=== PATIENT | female | born 1990 | race Caucasian/White ===

== ENCOUNTER 2016-12-19 10:10 | Inpatient (IN) | payer OTHER ==
[~2016-12-19] VITALS: Ht 175.3 cm; Wt 64.2 kg
[2016-12-19] MEDS ORDERED: FLEET ENEMA PR PRN (11:45)
[2016-12-19] MEDS ORDERED: MOM 30ML SUSPENSION UDC PO PRN (11:45)
[2016-12-19] MEDS ORDERED: ACETAMINOPHEN TAB 650MG DOSE (2X325MG) PO PRN (11:45)
[2016-12-19] MEDS ORDERED: BISACODYL 5 MG TAB PO PRN (11:45)
[2016-12-19] MEDS ORDERED: IBUPROFEN 400 MG TAB PO PRN (11:45)
[2016-12-19] MEDS ORDERED: traMADol 50 MG TAB PO PRN (12:15)
[2016-12-19 14:15] VITALS: BP 143/83
[2016-12-19] MEDS ORDERED: IBUP40TA PO (14:54)
[2016-12-19] MEDS ORDERED: COLA100C3 PO (14:54)
[2016-12-19] MEDS ORDERED: MIRA33504 PO (14:54)
[2016-12-19] MEDS ORDERED: LOVE1INJ SC (14:54)
[2016-12-19] MEDS ORDERED: ACET500T37 PO (14:54)
[2016-12-19] MEDS ORDERED: HYDR2TAB2 PO (14:54)
[2016-12-19] MEDS ORDERED: DIAZ5TAB PO (14:54)
[2016-12-19] MEDS ORDERED: SENN8.6T10 PO (14:54)
[2016-12-19] MEDS ORDERED: PATIENT COMMENT (14:55)
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
[2016-12-19] MEDS: HYDROmorphone 2 MG TAB PO PRN ×2 (15:23→20:21)
[2016-12-19] MEDS: diazePAM 5 MG TAB PO SCH ×2 (15:23→20:16)
[2016-12-19] MEDS: traMADol 50 MG TAB PO SCH ×2 (17:23→20:18)
[2016-12-19] MEDS: OYSTER SHELL CALCIUM 500 MG TAB PO SCH (20:17)
[2016-12-19] MEDS: SENNA 8.6 MG TAB (SENOKOT) PO SCH (20:19)
[2016-12-19] MEDS: ENOXAPARIN 40 MG/0.4 ML SYRINGE (J1650) SC SCH (20:19)
[2016-12-19] MEDS: DOCUSATE SODIUM 100 MG CAP PO SCH (20:19)
[2016-12-19 20:30] VITALS: BP 119/65
[2016-12-20] MEDS: diazePAM 5 MG TAB PO SCH ×4 (01:53→20:16)
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
[2016-12-20 06:07] VITALS: BP 121/67
[2016-12-20 07:16] LABS: BASO % 0.4 % (0.0-1.0); EOS # 0.2 K/mm3 (0.0-0.50); EOS % 3.1 % (0.0-3.0); LARGE UNSTAINED CELL # 0.1 K/mm3 (0.0-0.4); LYMPH # 1.7 K/mm3 (1.5-6.5); LYMPH % 26.2 % (24.0-44.0); MEAN CORPUSCULAR HEMOGLOBIN 30.2 pg (27.0-33.0); MEAN CORPUSCULAR HGB CONC 33.2 g/dl (32.0-36.5); MEAN CORPUSCULAR VOLUME 90.8 fl (80.0-96.0); MONO # 0.3 K/mm3 (0.0-0.8); MONO % 5.4 % (0.0-5.0); NEUTROPHILS # 3.8 K/mm3 (1.8-7.7); NEUTROPHILS % 62.9 % (36.0-66.0); PLATELET COUNT, AUTOMATED 171 k/mm3 (150-450); RED CELL DISTRIBUTION WIDTH 13.2 % (11.5-14.5)
[2016-12-20 07:19] LABS: CALCIUM OXALATE CRYSTALS SMALL
[2016-12-20] MEDS: HYDROmorphone 2 MG TAB PO SCH ×2 (07:39→12:31)
[2016-12-20 07:46] LABS: ALBUMIN 3.4 GM/DL (3.2-5.2); ALBUMIN/GLOBULIN RATIO 0.92 (1.00-1.93); ALKALINE PHOSPHATASE 42 U/L (45-117); ALT/SGPT 32 U/L (12-78); ANION GAP 7 MEQ/L (8-16); AST/SGOT 9 U/L (15-37); BILIRUBIN,TOTAL 0.4 MG/DL (0.2-1.0); BLOOD UREA NITROGEN 20 MG/DL (7-18); CALCIUM LEVEL 8.5 MG/DL (8.5-10.1); CARBON DIOXIDE LEVEL 26 MEQ/L (21-32); CHLORIDE LEVEL 106 MEQ/L (98-107); CREATININE FOR GFR 0.57 MG/DL (0.55-1.02); GLOMERULAR FILTRATION RATE > 60.0 (>60); GLUCOSE, FASTING 86 MG/DL (70-105); SODIUM LEVEL 139 MEQ/L (136-145); TOTAL PROTEIN 7.1 GM/DL (6.4-8.2)
[2016-12-20] MEDS: MULTIVITAMINS/MINERALS THERAP 1 TAB PO SCH (08:30)
[2016-12-20] MEDS: OYSTER SHELL CALCIUM 500 MG TAB PO SCH ×2 (08:30→20:15)
[2016-12-20] MEDS: SENNA 8.6 MG TAB (SENOKOT) PO SCH ×2 (08:30→20:17)
[2016-12-20] MEDS: traMADol 50 MG TAB PO SCH ×4 (08:30→20:17)
[2016-12-20] MEDS: DOCUSATE SODIUM 100 MG CAP PO SCH ×2 (08:31→20:18)
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
[2016-12-20 14:00] VITALS: BP 123/64
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
[2016-12-20 20:00] VITALS: BP 117/66
[2016-12-20] MEDS: ENOXAPARIN 40 MG/0.4 ML SYRINGE (J1650) SC SCH (20:15)
[2016-12-20] MEDS: HYDROmorphone 2 MG TAB PO PRN (20:16)
[2016-12-20] MEDS ORDERED: NICOTINE 14 MG/24 HR TRANSDERMAL TD ONE (20:45)
[2016-12-21] MEDS: diazePAM 5 MG TAB PO SCH ×4 (02:03→20:32)
[2016-12-21] MEDS: HYDROmorphone 2 MG TAB PO PRN ×2 (02:04→20:34)
[2016-12-21 06:00] VITALS: BP 100/50
[2016-12-21 06:33] LABS: MEAN CORPUSCULAR HEMOGLOBIN 31.1 pg (27.0-33.0); MEAN CORPUSCULAR HGB CONC 34.6 g/dl (32.0-36.5); RED CELL DISTRIBUTION WIDTH 13.2 % (11.5-14.5)
[2016-12-21] MEDS: HYDROmorphone 2 MG TAB PO SCH ×2 (06:40→12:01)
[2016-12-21] MEDS: MULTIVITAMINS/MINERALS THERAP 1 TAB PO SCH (08:21)
[2016-12-21] MEDS: OYSTER SHELL CALCIUM 500 MG TAB PO SCH ×2 (08:21→20:32)
[2016-12-21] MEDS: NICOTINE 14 MG/24 HR TRANSDERMAL TD SCH (08:22)
[2016-12-21] MEDS: traMADol 50 MG TAB PO SCH ×4 (08:23→20:34)
[2016-12-21] MEDS: SENNA 8.6 MG TAB (SENOKOT) PO SCH ×2 (08:23→21:00)
[2016-12-21] MEDS: DOCUSATE SODIUM 100 MG CAP PO SCH ×2 (08:23→21:00)
[2016-12-21 14:00] VITALS: BP 123/68
[2016-12-21 20:00] VITALS: BP 113/55
[2016-12-21] MEDS: ENOXAPARIN 40 MG/0.4 ML SYRINGE (J1650) SC SCH (20:35)
[2016-12-22] MEDS: diazePAM 5 MG TAB PO SCH ×4 (02:02→20:52)
[2016-12-22 06:00] VITALS: BP 103/57
[2016-12-22 06:28] LABS: MEAN CORPUSCULAR HEMOGLOBIN 30.8 pg (27.0-33.0); MEAN CORPUSCULAR HGB CONC 34.3 g/dl (32.0-36.5); MEAN CORPUSCULAR VOLUME 89.9 fl (80.0-96.0); RED CELL DISTRIBUTION WIDTH 13.3 % (11.5-14.5); WHITE BLOOD COUNT 4.5 K/mm3 (4.0-10.0)
[2016-12-22] MEDS: HYDROmorphone 2 MG TAB PO SCH ×2 (06:36→12:53)
[2016-12-22] MEDS: DOCUSATE SODIUM 100 MG CAP PO SCH ×2 (09:00→20:43)
[2016-12-22] MEDS: SENNA 8.6 MG TAB (SENOKOT) PO SCH ×3 (09:00→20:44)
[2016-12-22] MEDS: NICOTINE 14 MG/24 HR TRANSDERMAL TD SCH (09:04)
[2016-12-22] MEDS: MULTIVITAMINS/MINERALS THERAP 1 TAB PO SCH (09:04)
[2016-12-22] MEDS: traMADol 50 MG TAB PO SCH ×4 (09:05→20:54)
[2016-12-22] MEDS: OYSTER SHELL CALCIUM 500 MG TAB PO SCH ×2 (09:06→20:53)
[2016-12-22 14:00] VITALS: BP 123/66
[2016-12-22 20:00] VITALS: BP 121/56
[2016-12-22] MEDS: ENOXAPARIN 40 MG/0.4 ML SYRINGE (J1650) SC SCH (20:52)
[2016-12-22] MEDS: HYDROmorphone 2 MG TAB PO PRN (20:55)
[2016-12-23 06:17] VITALS: BP 104/59
[2016-12-23 06:57] LABS: MEAN CORPUSCULAR HEMOGLOBIN 31.2 pg (27.0-33.0); MEAN CORPUSCULAR HGB CONC 34.5 g/dl (32.0-36.5); MEAN CORPUSCULAR VOLUME 90.4 fl (80.0-96.0); RED CELL DISTRIBUTION WIDTH 13.2 % (11.5-14.5); WHITE BLOOD COUNT 4.2 K/mm3 (4.0-10.0)
[2016-12-23] MEDS: HYDROmorphone 2 MG TAB PO SCH ×2 (07:54→12:31)
[2016-12-23] MEDS ORDERED: diazePAM 5 MG TAB PO SCH (08:00)
[2016-12-23] MEDS: MULTIVITAMINS/MINERALS THERAP 1 TAB PO SCH (09:19)
[2016-12-23] MEDS: traMADol 50 MG TAB PO SCH ×2 (09:20→13:55)
[2016-12-23] MEDS: NICOTINE 14 MG/24 HR TRANSDERMAL TD SCH (09:21)
[2016-12-23] MEDS: OYSTER SHELL CALCIUM 500 MG TAB PO SCH (09:22)
[2016-12-23] MEDS ORDERED: NICO7PA TD (09:31)
[2016-12-23] MEDS ORDERED: CALCI50TA PO (09:31)
[2016-12-23] MEDS ORDERED: NICO14PA TD (09:31)
[2016-12-23] MEDS ORDERED: DILA2TAB2 PO (09:31)
[2016-12-23] MEDS ORDERED: TRAM50TA2 PO (09:31)
[2016-12-23] MEDS ORDERED: DIAZ5TAB PO (09:47)
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
[2016-12-25] MEDS ORDERED: NICOTINE 7 MG/24 HR TRANSDERMAL TD SCH (09:00)
[2016-12-27] MEDS ORDERED: diazePAM 5 MG TAB PO SCH (02:00)
== END 2016-12-23 14:48 | disposition home or self-care (01) | DRG 862 ==
LOC: M PM&R 14:15
PROVIDERS: ADMIT Physical Medicine & Rehabilitation; ATTEND Physical Medicine & Rehabilitation
DX: S32.402D Unspecified fracture of left acetabulum, subsequent encounter for fracture with routine healing (principal); F41.9 Anxiety disorder, unspecified; S22.32XD Fracture of one rib, left side, subsequent encounter for fracture with routine healing; S36.11 Injury of liver; S36.030D Superficial (capsular) laceration of spleen, subsequent encounter; F17.200 Nicotine dependence, unspecified, uncomplicated; R79.89 Other specified abnormal findings of blood chemistry; V49.40XD Driver injured in collision with unspecified motor vehicles in traffic accident, subsequent encounter; Y92.410 Unspecified street and highway as the place of occurrence of the external cause; Y93.89 Activity, other specified; Y99.9 Unspecified external cause status; Z80.41 Family history of malignant neoplasm of ovary; Z81.8 Family history of other mental and behavioral disorders; Z79.899 Other long term (current) drug therapy; Z33.1 Pregnant state, incidental; S32.512D Fracture of superior rim of left pubis, subsequent encounter for fracture with routine healing; S32.602D Unspecified fracture of left ischium, subsequent encounter for fracture with routine healing; S32.302D Unspecified fracture of left ilium, subsequent encounter for fracture with routine healing

== ENCOUNTER → 2016-12-26 | Outpatient (CLI) | payer OTHER ==
[~2016-12-26] MED LIST: ACET500T37 PO; CALCI50TA PO; COLA100C3 PO; DIAZ5TAB PO; DILA2TAB2 PO; HYDR2TAB2 PO; IBUP40TA PO; LOVE1INJ SC; MIRA33504 PO; NICO14PA TD; NICO7PA TD; PATIENT COMMENT; SENN8.6T10 PO; TRAM50TA2 PO
== END ==
LOC: M RAD 13:38
PROVIDERS: ATTEND Obstetrics & Gynecology
DX: O20.0 Threatened abortion (principal); Z3A.00 Weeks of gestation of pregnancy not specified

== ENCOUNTER → 2017-01-16 | Outpatient (CLI) | payer OTHER ==
--- NOTE | 2017-01-16 13:52 | REP ---
MRI LUMBAR SPINE WITHOUT CONTRAST: HISTORY: Disc degeneration. Slight decreased signal intensity on T2-weighted images is present in the L1-2 intervertebral disc . This represents disc degeneration. There is no disc bulge or herniation at the L1-2 through L3-4 and L5-S1 levels. The nerves exit the neural foramina without compression. A diffuse disc bulge is present at the L4-5 level. There is minimal compression of the thecal sac. The L4 nerves exit the neural foramina without compression. The conus medullaris is normal in appearance terminating at the level of the T12-L1 intervertebral disc. Normal signal intensity is present in the lumbar vertebral bodies. IMPRESSION: Diffuse disc bulge at the L4-5 level with minimal thecal sac compression. Signed by Colton Jefferson MD 01/16/2017 02:17 P
== END ==
LOC: M RAD 12:55
PROVIDERS: ATTEND Physician Assistant
DX: M51.26 Other intervertebral disc displacement, lumbar region (principal)

== ENCOUNTER → 2017-10-15 | Outpatient (REF) | payer OTHER | LOC: M LAB REF 11:24 | DX: F11.21 Opioid dependence, in remission (principal) ==

== ENCOUNTER → 2017-10-28 | Outpatient (REF) | payer OTHER, MEDICAID | LOC: M LAB REF 16:35 | DX: F11.21 Opioid dependence, in remission (principal) ==

== ENCOUNTER → 2017-11-05 | Outpatient (REF) | payer OTHER, MEDICAID ==
[2017-11-11 14:18] LABS: AMPHETAMINE SCREEN, URINE Negative ng/mL (Cutoff=1000); BARBITURATES SCREEN, URINE Negative ng/mL (Cutoff=200); BENZODIAZEPINES, URINE SCREEN Negative ng/mL (Cutoff=200); CANNABINOID SCREEN, URINE Negative ng/mL (Cutoff=20); COCAINE SCREEN, URINE Negative ng/mL (Cutoff=300); CREATININE, URINE 218.8 mg/dL (20.0-300.0); FENTANYL URINE SCREEN Negative pg/mL (Cutoff=2000); METHADONE, URINE SCREEN Negative ng/mL (Cutoff=300); NALOXONE RESULT Positive (.); OPIATE SCREEN, URINE Negative ng/mL (Cutoff=300); OXYCODONE, SCREEN, URINE Negative ng/mL (Cutoff=100); PCP SCREEN, URINE Negative ng/mL (Cutoff=25); URINE BUPRENORPHINE Positive (.); URINE BUPRENORPHINE Positive (Cutoff=10); URINE BUPRENORPHINE See Final Results ng/mL (Cutoff=10); URINE BUPRENORPHINE CONFIRM 668 ng/mL (Cutoff=10); URINE NORBUPRENORPHINE Positive (.); URINE NORBUPRENORPHINE CONFIRM 1044 ng/mL (Cutoff=10); pH, URINE 6.4 (4.5-8.9)
== END ==
LOC: M LAB REF 16:53
DX: F11.21 Opioid dependence, in remission (principal)
CPT/HCPCS: 80362

== ENCOUNTER → 2017-11-25 | Outpatient (REF) | payer OTHER, MEDICAID | LOC: M LAB REF 16:31 | DX: F11.21 Opioid dependence, in remission (principal) ==

== ENCOUNTER → 2017-12-10 | Outpatient (REF) | payer OTHER, MEDICAID | LOC: M LAB REF 12:15 | DX: F11.21 Opioid dependence, in remission (principal) ==

== ENCOUNTER 2018-10-22 18:54 | Inpatient (IN) | payer OTHER, MEDICAID ==
[2018-10-22] VITALS (20 sets, daily range): BP systolic 116–140; BP diastolic 57–95
[~2018-10-22 18:54] MED LIST changes: +ACET-683 PO; -ACET500T37 PO; -COLA100C3 PO; +COLA100C5 PO; -DILA2TAB2 PO; +DILA2TAB6 PO; +SENN1TAB10 PO; -SENN8.6T10 PO
[2018-10-22] MEDS ORDERED: PENICILLIN G POTASSIUM IV 5 MU in D5W MINI-BAG PLUS 100 ML IV STA (19:27)
[2018-10-22] MEDS ORDERED: LACTATED RINGER'S 1000 ML IV STA (19:27)
[2018-10-22] MEDS ORDERED: MAG Sulf (L&D) 4 GM/100 ML 4 GM in APPROPRIATE DILUENT 1 EA IV ONE (19:45)
[2018-10-22] MEDS ORDERED: LR 1,000 ML IV SCH (19:45)
[2018-10-22] MEDS ORDERED: MAG Sulf (OBGYN) 20GM/500ML 20,000 MG in APPROPRIATE DILUENT 1 EA IV SCH (20:15)
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
[2018-10-22] MEDS ORDERED: BETAMETHASONE SOLUSPAN 6MG/ML INJ 5ML (J0702) IM ONE (21:30)
[2018-10-22 21:49] LABS: BARBITURATES URINE REFLEX NEGATIVE (NEGATIVE); BENZODIAZEPINES URINE REFLEX NEGATIVE (NEGATIVE); CANNABINOIDS URINE REFLEX NEGATIVE (NEGATIVE); COCAINE METABOLITE URINE REFLE NEGATIVE (NEGATIVE); METHADONE URINE REFLEX NEGATIVE (NEGATIVE); OPIATES URINE REFLEX NEGATIVE (NEGATIVE); PHENCYCLIDINE URINE REFLEX NEGATIVE (NEGATIVE)
[2018-10-22 21:50] LABS: HEMATOCRIT 32.3 % (36.0-47.0); HEMOGLOBIN 10.2 g/dl (12.0-15.5); MEAN CORPUSCULAR HGB CONC 31.6 g/dl (32.0-36.5); MEAN CORPUSCULAR VOLUME 79.2 fl (80.0-96.0); PLATELET COUNT, AUTOMATED 154 10^3/uL (150-450); RED BLOOD COUNT 4.08 10^6/uL (4.00-5.40); WHITE BLOOD COUNT 14.7 10^3/uL (4.0-10.0)
[2018-10-22] MEDS ORDERED: FENTANYL 2MCG/ML ROPIVACAINE 0.2% IN 0.9% NACL 100ML IVBAG As Ordered ONE (22:03)
[2018-10-22 22:20] LABS: AMPHETAMINES URINE REFLEX PENDING CONFIRMATION (NEGATIVE)
[2018-10-22] MEDS ORDERED: LACTATED RINGER'S 1000 ML IV PRN (23:00)
[2018-10-22] MEDS ORDERED: EPIDURAL COMMENT XX SCH (23:00)
[2018-10-22] MEDS ORDERED: REFRIGERATOR IV KEYS XX PRN (23:00)
[2018-10-22] MEDS ORDERED: EPIDURAL/PCA KEYS XX PRN (23:00)
[2018-10-22] MEDS ORDERED: FENTANYL/ROPIVACAINE/NACL BAG 100 ML EPIDURAL SCH (23:00)
[2018-10-22] MEDS ORDERED: ONDANSETRON 4MG/2ML VIAL (J2405) IV PRN (23:00)
[2018-10-22] MEDS ORDERED: ePHEDrine SULFATE 25 MG/5 ML(5MG/ML) SYRINGE IV PRN (23:00)
[2018-10-22] MEDS ORDERED: diphenhydrAMINE INJ 50MG/ML VIAL (J1200) IV PRN (23:00)
[2018-10-22] MEDS ORDERED: NALOXONE INJ 0.4 MG/1 ML VIAL (J2310) IV PRN (23:00)
[2018-10-23] VITALS (22 sets, daily range): BP systolic 102–141; BP diastolic 55–86
[2018-10-23] MEDS ORDERED: PENICILLIN G POTASSIUM IV 2.5 MU in APPROPRIATE DILUENT 1 EA IV SCH (00:15)
[2018-10-23] MEDS ORDERED: OXYTOCIN 30 UNITS IN 0.9% NaCl 500ML IV BAG (J2590) As Ordered ONE (03:08)
[2018-10-23 06:42] LABS: CORD GAS HCO3 V 22.2 MEQ/L; CORD GAS O2 SAT V 59.8 %; CORD GAS PCO2 V 40.5 mmHg; CORD GAS PH V 7.357 UNITS; CORD GAS PO2 V 24.7 mmHg; CORD GAS SBC V 21.1 MEQ/L; CORD GAS TCO2 V 23.5 MEQ/L
[2018-10-23] MEDS ORDERED: METHYLERGONOVINE MALEATE 0.2 MG TAB PO PRN (06:45)
[2018-10-23] MEDS ORDERED: RHOGAM 300 MCG (1500 IU) INJ (J2790) IM SCH (06:45)
[2018-10-23] MEDS ORDERED: OXYTOCIN DRIP 30 UNITS in APPROPRIATE DILUENT 1 EA IV ONE (06:45)
[2018-10-23] MEDS ORDERED: DIBUCAINE 1% OINTMENT 30GM TOP PRN (06:45)
[2018-10-23] MEDS ORDERED: MEASLES,MUMPS,RUBELLA VACCINE INJ (MMR-II) (90707) SC SCH (06:45)
[2018-10-23] MEDS ORDERED: ONDANSETRON 4MG/2ML VIAL (J2405) IV PRN (06:45)
[2018-10-23] MEDS ORDERED: DOCUSATE SODIUM 100 MG CAP PO PRN (06:45)
[2018-10-23] MEDS: IBUPROFEN 800 MG TAB PO PRN ×2 (08:33→17:38)
[2018-10-23] MEDS: PRENATAL VITAMINS CHEWABLE TABLET PO SCH (08:34)
[2018-10-23] MEDS: ACETAMINOPHEN 500 MG TAB PO PRN ×2 (10:20→22:43)
[2018-10-23 10:48] LABS: RUBELLA IgG QUALITATIVE IMMUNE (IMMUNE)
--- NOTE | 2018-10-23 15:43 | DN ---
DATE: 10/23/2018 PREDELIVERY DIAGNOSIS: 30 weeks gestation, labor. POSTDELIVERY DIAGNOSIS: Probable 34-35 weeks gestation, chorioamnionitis, vaginal delivery. DRYING EQUIPMENT OPERATOR: Dr. Colton Neil ANESTHESIA: Epidural. ESTIMATED BLOOD LOSS: 300 mL. FINDINGS: A 6-pound, 2-ounce male , scores 8 and 9, meconium stained fluid which appeared to be infected. DELIVERY SUMMARY: After a two and a half hour second stage, the patient had spontaneous delivery of a 6-pound, 2-ounce male , scores 8 and 9, under epidural anesthesia. The patient did not receive care during the so the exact gestational age was unknown. There was no nuchal cord. The shoulders delivered with ease. The was handed to the mother and cried immediately. The chord was doubly clamped and cut. Placenta delivered spontaneously and appeared to be intact. The patient received IV pitocin immediately after delivery of the placenta. There were no vaginal lacerations present. Sponge counts were correct.
--- NOTE | 2018-10-23 17:08 | IPNPDOC ---
Text Note Date of Service The patient was seen on 10/23/18. NOTE Pt reports severe headache, photophobia, hot/cold flashes and increased anxiety Normotensive Pt reports last use of Teetee 10/22/18 around 1500. Pt has expressed desire to CPS and nursing staff of wish to detox. Consulted Dr Parks. Medical consult to Dr Bermeo for management of withdrawal symptoms. VS,Fishbone, I+O VS, Fishbone, I+O Laboratory Tests 10/22/18 21:37 Red Blood Count 4.08, Mean Corpuscular Volume 79.2 L, Mean Corpuscular Hemoglobin 25.0 L, Mean Corpuscular Hemoglobin Concent 31.6 L, Red Cell Distribution Width 15.6 H Vital Signs Date Time Temp Pulse Resp B/P (MAP) Pulse Ox O2 Delivery O2 Flow Rate FiO2 10/23/18 14:00 98.2 78 18 120/76 (91) I&O- Last 24 Hours up to 6 AM 10/23/18 06:00 Output Total 575 ml Balance -575 ml Deysi Barreto CNM Oct 23, 2018 17:08
[2018-10-23] MEDS: CALCIUM CARBONATE 500 MG CHEW U/D PO SCH ×2 (18:23→20:46)
[2018-10-23] MEDS ORDERED: cloNIDine HCL 0.2 MG/24 HR PATCH TOP SCH (21:00)
--- NOTE | 2018-10-23 21:01 | CR ---
DATE OF CONSULTATION: 10/23/2018 This is a 28-year-old female with past medical history of post-traumatic stress disorder, anxiety disorder, depression, who presented yesterday to the emergency room (ER) with abdominal pain. She went into labor and successfully delivered a healthy child. REASON FOR MEDICAL CONSULTATION: Narcotic withdrawal; apparently the patient abuses argelia, as well as methamphetamine and heroin. Her last dose of argelia was yesterday around 3:00 p.m. and her last dose of heroin is unknown. However, she is presenting with the classic withdrawal symptoms of narcotic abuse; hence why we were called. PAST MEDICAL HISTORY: Depression. Anxiety. Post-traumatic stress disorder. History of dilatation and curettage (D and C) five times for termination, miscarriage. ALLERGIES: She has no known drug allergies. FAMILY HISTORY: Noncontributory. SOCIAL HISTORY: The patient does smoke chronically and heavily. She also abuses heroin, argelia, and methamphetamine. No alcohol use. MEDICATIONS: She takes at home are as follows: - Tylenol as needed - diazepam 5 mg orally every 8 hours - hydromorphone 2 mg orally every 6 hours as needed - ibuprofen 400 mg orally four times a day - nicotine patch transdermal 7 mg daily - oyster shell calcium 500 mg twice daily - tramadol 50 mg orally every 4 hours as needed REVIEW OF SYSTEMS: Negative all ten major systems except what is mentioned in the history of the present illness. Vital Signs: Blood pressure is 137/80, heart rate is 82, regular, respiratory rate 18, temperature is 97.6. Head is atraumatic, normocephalic. Neck supple. No jugular venous distention (JVD). Lungs are clear to auscultation. S1, S2 audible. No murmurs appreciated. Abdomen: Soft, positive bowel sounds. No pedal edema. Skin: Intact. Neurologic Examination: Patient awake, alert, oriented times three. LABORATORY: WBC is 14.7, hemoglobin is 10.2, hematocrit 32.3, platelets 154,000. IMPRESSION: 1. Narcotic withdrawal. PLAN: At this time, recommendations are to add clonidine .2 mg transdermal weekly. We can always increase it to .3 if necessary. Keep the lights dim for now due to her photophobia and may have to give Imodium for potential diarrhea that may occur as well, but at this time, it is not necessary. Will work alongside the obstetrical service for this particular problem in the course of the next few days. JULIA
[2018-10-24] MEDS: IBUPROFEN 800 MG TAB PO PRN ×3 (01:41→16:26)
[2018-10-24 02:08] VITALS: BP 126/74
[2018-10-24] MEDS ORDERED: LORazepam 1 MG TAB PO PRN (03:45)
[2018-10-24] MEDS: ACETAMINOPHEN 500 MG TAB PO PRN ×2 (04:49→09:05)
[2018-10-24] MEDS: PRENATAL VITAMINS CHEWABLE TABLET PO SCH (09:04)
[2018-10-24] MEDS: CALCIUM CARBONATE 500 MG CHEW U/D PO SCH ×2 (09:04→15:29)
[2018-10-24 10:00] VITALS: BP 118/68
[2018-10-24] MEDS: FIORICET TAB PO PRN ×2 (11:33→15:29)
--- NOTE | 2018-10-24 12:37 | NUR ---
Day 1 Status post , uncomplicated Of note, patient has signed for her baby to be placed under Foster care Has a scheduled visit by immigration case worker on Friday10/26/18. Pt is currently declining drug rehab treatment Subjective C/o chronic AMIN all day and yesterday. Increased appetite. Lochia decreasing and minimal. Voiding spontaneously. Tolerating a regular diet. Ambulating without any assistance. Denies any subjective fever/chills/nausea/vomiting/visual changes/shortness of breath/chest pain. Objective Vitals: Normotensive, normal heart rate, afebrile, adequate urine output. Heart: regular, rate, and rhythm. no murmurs/gallops/rubs Lungs: clear to auscultation bilaterally, no wheezes/crackles/rales/ronchi Abd: soft, nontender, nondistended, uterine fundus is 2cm below umbilicus and firm Ext: no significant edema, nontender, negative Chanel's bilaterally. Assessment/Plan: day 1. Hemodynamically stable, afebrile. Mild to moderate withdrawal symptoms since being hospitalized. Pt accustomed to frequent heroin, [place], and methamphetamine drug abuse. She's not willing to initiate drug rehab treatment. 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 Baby currently in NICU. -Routine care -Discharge today. - BCM plan: DMPA. First dose ordered for today. -Routine infectious, fever, pain, and bleeding precautions reviewed Dr. Domingo Parks, Jyotsna.Kayden., F.A.C.O.G.
[2018-10-24] MEDS ORDERED: medroxyPROGESTERone ACET IM SUSP 150 MG/ML VIAL (J1050) IM ONE (14:30)
[2018-10-24 16:18] VITALS: BP 135/76
[2018-10-24] MEDS ORDERED: FIOR1CAP PO (17:58)
[2018-10-27 08:06] LABS: Amphetamine Positive (.); Amphetamines Positive (.); GC Amphetamine 2336 ng/mL (Cutoff=500); GC Methamphetam >4000 ng/mL (Cutoff=500); Methamphetamine Positive (.)
== END 2018-10-24 18:15 | disposition home or self-care (01) | DRG 560 ==
LOC: M LDO 18:54 → M LDI 19:22 → M OBS 10-23 13:46
PROVIDERS: ADMIT Specialist; ATTEND Specialist
PROC: 10E0XZZ Delivery of Products of Conception, External Approach (ICD-10-PCS; principal; 2018-10-23)
DX: O41.1230 Chorioamnionitis, third trimester, not applicable or unspecified (principal); Z37.0 Single live birth; F11.10 Opioid abuse, uncomplicated; F15.90 Other stimulant use, unspecified, uncomplicated; O99.324 Drug use complicating childbirth; F17.200 Nicotine dependence, unspecified, uncomplicated; O99.334 Smoking (tobacco) complicating childbirth; O09.31 Supervision of pregnancy with insufficient antenatal care, first trimester; O09.32 Supervision of pregnancy with insufficient antenatal care, second trimester; O09.33 Supervision of pregnancy with insufficient antenatal care, third trimester; Z3A.35 35 weeks gestation of pregnancy

== ENCOUNTER 2019-02-02 11:15 | Inpatient (IN) | payer MEDICAID, OTHER ==
[~2019-02-02] VITALS: Ht 175.3 cm; Wt 68.2 kg
[~2019-02-02 11:15] MED LIST changes: +FIOR1CAP PO
[2019-02-02 12:46] LABS: HEMATOCRIT 28.6 % (36.0-47.0); HEMOGLOBIN 8.5 g/dl (12.0-15.5); MEAN CORPUSCULAR HGB CONC 29.7 g/dl (32.0-36.5); MEAN CORPUSCULAR VOLUME 60.6 fl (80.0-96.0); PLATELET COUNT, AUTOMATED 197 10^3/uL (150-450); RED BLOOD COUNT 4.72 10^6/uL (4.00-5.40)
[2019-02-02 13:37] LABS: ALBUMIN 3.3 GM/DL (3.2-5.2); ALT/SGPT 1816 U/L (12-78); BILIRUBIN,DIRECT 3.4 MG/DL (0.0-0.2); BLOOD UREA NITROGEN 10 MG/DL (7-18); CALCIUM LEVEL 8.4 MG/DL (8.5-10.1); CARBON DIOXIDE LEVEL 26 MEQ/L (21-32); CHLORIDE LEVEL 107 MEQ/L (98-107); CREATININE FOR GFR 0.77 MG/DL (0.55-1.30); GLOMERULAR FILTRATION RATE > 60.0 (>60); GLUCOSE, FASTING 86 MG/DL (70-100); LIPASE 184 U/L (73-393); POTASSIUM SERUM 4.2 MEQ/L (3.5-5.1); SODIUM LEVEL 139 MEQ/L (136-145); TOTAL PROTEIN 7.7 GM/DL (6.4-8.2)
[2019-02-02 13:39] LABS: ANISOCYTOSIS 1+; ATYPICAL LYMPH 4 % (0-5); EOSINOPHILS 1 % (0-5); HYPOCHROMASIA 1+; LYMPHOCYTES 61 % (16-52); MONOCYTES 6 % (0-8); NEUTROPHILS 28 % (35-75); PLATELET ESTIMATE NORMAL (NORMAL)
[2019-02-02 14:28] LABS: CHLAMYDIA DNA AMPLIFICATION NEGATIVE (NEGATIVE); GC DNA AMPLIFICATION NEGATIVE (NEGATIVE)
--- NOTE | 2019-02-02 16:04 | REP ---
Clinical: Elevated liver function tests. Technique: Lopez scale ultrasound examination using curved array transducer. Findings: Liver and visualized pancreas are normal in contour, size, echogenicity without focal hepatic or pancreatic lesions identified. The gallbladder is contracted, but without obvious gallstones or wall thickening. No biliary ductal dilatation is appreciated and the common bile duct measures 2.1 mm diameter. The right kidney is normal in reniform shape without hydronephrosis and measures 12.2 x 4.5 x 3.9 cm. No ascites. Impression: Essentially normal right upper quadrant ultrasound. Electronically Signed by Leon Holman MD 02/02/2019 03:56 P
[2019-02-02 17:18] LABS: INR 1.12; PROTHROMBIN TIME 14.1 SECONDS (11.8-14.0)
[2019-02-02] MEDS ORDERED: ISOVUE-370 76% 100ML VIAL (Q9967) As Ordered ONE (18:10)
[2019-02-02 18:25] LABS: MONO REFLEX EBV COMP POSITIVE (NEGATIVE)
[2019-02-02 19:58] LABS: ACETAMINOPHEN LEVEL < 2.0 UG/ML (10.0-30.0)
--- NOTE | 2019-02-02 22:49 | REPVR ---
EXAM: CT Abdomen and Pelvis Without and With Contrast EXAM DATE/TIME: 02/02/2019 9:59 PM CLINICAL HISTORY: 28 years old, female; Abdominal pain; Generalized; Additional info: Triple phse for liver TECHNIQUE: Imaging protocol: Axial computed tomography images of the abdomen and pelvis without and with intravenous contrast. Coronal and sagittal reformatted images were created and reviewed. Radiation optimization: All CT scans at this facility use at least one of these dose optimization techniques: automated exposure control; mA and/or kV adjustment per patient size (includes targeted exams where dose is matched to clinical indication); or iterative reconstruction. Contrast material: ISOVUE 370; Contrast volume: 100 ml; Contrast route: IV; COMPARISON: Abdomen, limited US 02/02/2019 3:31 PM FINDINGS: Liver: There is a diffuse decrease in hepatic parenchymal density, consistent with fatty infiltration. Gallbladder and bile ducts: Cholelithiasis. No CT evidence of cholecystitis. Pancreas: Normal. No ductal dilation. Spleen: There is moderate splenomegaly with a maximum span of 17.5 centimeters. No focal abnormalities demonstrated. Adrenals: Normal. No mass. Kidneys and ureters: Normal. No hydronephrosis. Stomach and bowel: There is increased feces throughout the colon consistent with constipation. There is gastric distention with retained secretions. Clinical correlation to exclude gastroparesis or gastric outlet obstruction suggested. Appendix: No evidence of appendicitis. Intraperitoneal space: Normal. No free air. No significant fluid collection. Vasculature: Normal. No abdominal aortic aneurysm. Lymph nodes: Normal. No enlarged lymph nodes. Bladder: Unremarkable as visualized. Reproductive: Unremarkable as visualized. Bones/joints: No acute fracture. No dislocation. Soft tissues: Small umbilical hernia. Otherwise unremarkable. IMPRESSION: 1. There is moderate splenomegaly with a maximum span of 17.5 centimeters. No focal abnormalities demonstrated. 2. There is a diffuse decrease in hepatic parenchymal density, consistent with fatty infiltration. 3. There is increased feces throughout the colon consistent with constipation. 4. There is gastric distention with retained secretions. Clinical correlation to exclude gastroparesis or gastric outlet obstruction suggested. Electronically signed by: Jesus Loza On 02/02/2019 22:48:46 PM
[2019-02-03] MEDS ORDERED: ONDANSETRON 4MG/2ML VIAL (J2405) IV PRN (00:45)
--- NOTE | 2019-02-03 01:09 | HPEPDOC ---
General Date of Admission 02/03/19 Date of Service: Feb 03, 2019 Chief Complaint The patient is a 28-year-old female admitted with a reason for visit of Urinary Problem. Source: Patient, RN/MD, Old records Exam Limitations: No limitations Severity: Moderate History of Present Illness 28 year old female with h/o poly substance abuse, migraine, from detention came to the ED for yellowish discoloration of her eyes and skin and white colored stools. Pateint has been in the detention for 2 weeks. About a week ago she was having low back pain dull aching in nature radiating to the front of the abdomen into the suprapubic area could not quantify the pain. It was associated with dysuria. She was seen by the detention doctor and was given an antibiotics for urinary tract infection. She felt a little better but today she noticed yellowish color of her skin and eyes. She has also noted whitish soft stools for the past 4 days. In the ED she was found to have very abnormal LFTs with AST/ALT of 1274/1816, bili of 4.0, direct 3.4. She also had a dirty UA. She had a Ct abdomen done which showed . There is moderate splenomegaly with a maximum span of 17.5 centimeters. No focal abnormalities demonstrated. 2. There is a diffuse decrease in hepatic parenchymal density, consistent with fatty infiltration. 3. There is increased feces throughout the colon consistent with constipation. 4. There is gastric distention with retained secretions. Clinical correlation to exclude gastroparesis or gastric outlet obstruction suggested. She was admitted for Acute hepatitis. Home Medications No Active Prescriptions or Reported Meds Allergies Coded Allergies: codeine (Verified Allergy, Severe, almost dies, 02/02/19) acetaminophen (Verified Allergy, Intermediate, rash, 02/02/19) hydrocodone (Verified Allergy, Intermediate, rash, 02/02/19) morphine (Verified Allergy, Intermediate, unknown, 02/02/19) trazodone (Verified Allergy, Intermediate, rash, 02/02/19) Past Medical History Medical History Polysubstance abuse Surgical History appendectomy, D and Cs Social History * Smoker: current smoker Alcohol: Denies Drugs: heroin, IV drug use, other (methaphetamine) A-FIB/CHADSVASC A-FIB History Current/History of A-Fib/PAF?: No Review of Systems Constitutional: Denies: Chills, Fever, Night Sweats Eyes: Denies: Pain, Vision change ENT: Denies: Head Aches, Ear Pain, Dysphagia Skin: Reports: Jaundice Pulmonary: Denies: Dyspnea, Cough Cardiovascular: Denies: Chest Pain, Palpitations, Orthopnea, Paroxysmal Noc. Dyspnea, Lt Headedness Gastrointestinal: Reports: Abdominal Pain, Other Symptoms (change in stool color and consistency); Denies: Nausea, Vomiting, Constipation, Melena Genitourinary: Reports: Dysuria, Frequency Hematologic: Denies: Bruising, Bleeding Excessively Musculoskeletal: Denies: Neck Pain, Back Pain, Joint Pain, Muscle Pain, Spasms Neurological: Denies: Weakness, Numbness, Change in speech, Confusion Physical Examination General Exam: Positive: Alert, Cooperative, No Acute Distress Eye Exam: Positive: PERRLA, Conjunctiva & lids normal, EOMI, Sclera icteric ENT Exam: Positive: Atraumatic, Mucous membr. moist/pink, Pharynx Normal Neck Exam: Positive: Supple; Negative: JVD, thyromegaly Chest Exam: Positive: Clear to auscultation, Normal air movement Heart Exam: Positive: Rate Normal, Regular Rhythm, Normal S1, Normal S2; Negative: Murmurs, Rubs Abdomen Exam: Positive: Normal bowel sounds, Soft, Tenderness (right upper quadrant), Other (no guarding or rigidity) Extremity Exam: Positive: Normal pulses; Negative: Clubbing, Cyanosis, Edema Skin Exam: Positive: Nl turgor and temperature, Other skin issue (jaundice); Negative: Breakdown, Lesion Neuro Exam: Positive: Normal Gait, Normal Speech, Cranial Nerves 3-12 NL, Reflexes 2+ Vital Signs Vital Signs Date Time Temp Pulse Resp B/P (MAP) Pulse Ox O2 Delivery O2 Flow Rate FiO2 02/02/19 22:51 107/76 (86) 02/02/19 21:11 97.8 67 18 96 Room Air Laboratory Data Labs 24H Laboratory Tests 2 02/02/19 12:34: Nucleated Red Blood Cells % (auto) 0.0, Neutrophils 28L, Lymphocytes (Manual) 61H, Monocytes (Manual) 6, Eosinophils (Manual) 1, Atypical Lymphocytes 4, Platelet Estimate NORMAL, Hypochromasia 1+, Anisocytosis 1+, Urine Color DK YELLOW, Urine Appearance HAZY, Urine pH 6.0, Urine Specific [place] 1.011, Urine Protein NEGATIVE, Urine Glucose (UA) NEGATIVE, Urine Ketones NEGATIVE, Urine Blo od NEGATIVE, Urine Nitrite POSITIVEH, Urine Bilirubin 2+H, Urine Urobilinogen 2.0H, Urine Leukocyte Esterase 1+H, Urine WBC (Auto) 16H, Urine RBC (Auto) 5H, Urine Hyaline Casts (Auto) 0, Urine Bacteria (Auto) 2+H, Urine Squamous Epithelial Cells 3, Urine Mucus (Auto) LARGE, Urine Sperm (Auto) , Anion Gap 6L, Glomerular Filtration Rate > 60.0, Calcium Level 8.4L, Aspartate Amino Transf (AST/SGOT) 1274H, Alanine Aminotransferase (ALT/SGPT) 1816H, Alkaline Phosphatase 383H, Total Bilirubin 4.0H, Direct Bilirubin 3.4H, Total Protein 7.7, Albumin 3.3, Albumin/Globulin Ratio 0.75L, Lipase 184, Acetaminophen Level < 2.0L, Chlamydia trachomatis DNA (RONDA) NEGATIVE, Monoscreen POSITIVEA, Neisseria gonorrhoeae DNA (RONDA) NEGATIVE, Trichomonas vaginalis (PCR) NOT DETECTED 02/02/19 16:18: Prothrombin Time 14.1H, Prothromb Time International Ratio 1.12, Lactic Acid Level 1.0, Ammonia < 10 02/02/19 17:43: 02/02/19 21:04: Acetaminophen Level < 2.0L CBC/BMP Laboratory Tests 02/02/19 12:34 Red Blood Count 4.72, Mean Corpuscular Volume 60.6 L, Mean Corpuscular Hemoglobin 18.0 L, Mean Corpuscular Hemoglobin Concent 29.7 L, Red Cell Distribu tion Width 21.2 H Microbiology Microbiology 02/02/19 Wet Prep - Final, Complete 02/02/19 Urine Culture, Received Pending Assessment/Plan 28 year old female with h/o poly substance abuse, migraine, from detention came to the ED for yellowish discoloration of her eyes and skin and white colored stools. Pateint has been in the detention for 2 weeks. About a week ago she was having low back pain dull aching in nature radiating to the front of the abdomen into the suprapubic area could not quantify the pain. It was associated with dysuria. She was seen by the detention doctor and was given an antibiotics for urinary tract infection. She felt a little better but today she noticed yellowish color of her skin and eyes. She has also noted whitish soft stools for the past 4 days. In the ED she was found to have very abnormal LFTs with AST/ALT of 1274/1816, bili of 4.0, direct 3.4. She also had a dirty UA. She had a Ct abdomen done which showed . There is moderate splenomegaly with a maximum span of 17.5 centimeters. No focal abnormalities demonstrated. 2. There is a diffuse decrease in hepatic parenchymal density, consistent with fatty infiltration. 3. There is increased feces throughout the colon consistent with constipation. 4. There is gastric distention with retained secretions. Clinical correlation to exclude gastroparesis or gastric outlet obstruction suggested. She was admitted for Acute hepatitis. Acute Hepatitis most probably viral hepatitis, no hypotension, So no shock liver Drug related hepatotoxicity is also a possibility, recent use f antibiotics , also uses multiple street drugs. ibuprofen prn for pain zofran and PPI [place] screen positive. follow up definitive test for any acute infection which could cause acute hepatitis Follow Hep B, Hep C, Hep A, HIV, CMV results. Consider consulting GI. Possible UTI was getting antibiotics in the detention so culture may be negative. now so symptoms so will not give any antibiotics. Microcytic Anemia new will check iron studies. Does have h/o GIB. Lymphocytosis CBC differential shows lymphocytosis will need to be followed up. CT abdomen suggestive of gastroparesis or gastric outlet obstruction Patient says she had an EGD and Colonoscopy recently at [facility] [place] was not told of any abnormality in [facility] Endoscopy. Di have some abnormality in colonoscopy could not tell me what. Plan / VTE VTE Prophylaxis Ordered?: Yes MICHELLE ESPINOSA MD Feb 03, 2019 01:09
[2019-02-03 01:40] VITALS: BP 103/59
[2019-02-03] MEDS: IBUPROFEN 600 MG TAB PO PRN ×2 (02:06→17:09)
[2019-02-03 06:00] VITALS: BP 104/53
[2019-02-03 06:54] LABS: BASO % 0.5 % (0.0-1.0); EOS # 0.1 10^3/uL (0.0-0.50); EOS % 2.8 % (0.0-3.0); HEMATOCRIT 24.6 % (36.0-47.0); HEMOGLOBIN 7.5 g/dl (12.0-15.5); LYMPH # 2.3 10^3/uL (1.5-6.5); LYMPH % 56.7 % (24.0-44.0); MEAN CORPUSCULAR HEMOGLOBIN 17.5 pg (27.0-33.0); MEAN CORPUSCULAR HGB CONC 30.5 g/dl (32.0-36.5); MEAN CORPUSCULAR VOLUME 57.5 fl (80.0-96.0); MONO # 0.4 10^3/uL (0.0-0.8); MONO % 11.1 % (0.0-5.0); NEUTROPHILS # 1.2 10^3/uL (1.8-7.7); NEUTROPHILS % 28.9 % (36.0-66.0); PLATELET COUNT, AUTOMATED 205 10^3/uL (150-450); RED BLOOD COUNT 4.28 10^6/uL (4.00-5.40)
[2019-02-03 07:33] LABS: ALBUMIN 2.9 GM/DL (3.2-5.2); ALT/SGPT 1311 U/L (12-78); BILIRUBIN,TOTAL 3.9 MG/DL (0.2-1.0); BLOOD UREA NITROGEN 9 MG/DL (7-18); CARBON DIOXIDE LEVEL 25 MEQ/L (21-32); CHLORIDE LEVEL 107 MEQ/L (98-107); CREATININE FOR GFR 0.74 MG/DL (0.55-1.30); FERRITIN 36 NG/ML (8-252); GLOMERULAR FILTRATION RATE > 60.0 (>60); GLUCOSE, FASTING 66 MG/DL (70-100); IRON (FE) 19 UG/DL (50-170); PERCENT SATURATION 4.7 % (13.2-45.0); POTASSIUM SERUM 4.4 MEQ/L (3.5-5.1); SODIUM LEVEL 137 MEQ/L (136-145); TOTAL IRON BINDING CAPACITY 405 UG/DL (250-450); TOTAL PROTEIN 6.9 GM/DL (6.4-8.2)
[2019-02-03] MEDS: NS 1,000 ML IV SCH ×2 (08:38→17:09)
[2019-02-03] MEDS: OMEPRAZOLE 20 MG CAP PO SCH (08:38)
[2019-02-03 09:49] LABS: FOLATE 16.5 NG/ML; VITAMIN B12 LEVEL 1796 PG/ML
[2019-02-03 10:38] LABS: HEPATITIS B SURFACE ANTIGEN NEGATIVE (NEGATIVE)
[2019-02-03 11:05] LABS: HEPATITIS B CORE ANTIBODY IGM NEGATIVE (NEGATIVE)
[2019-02-03 11:06] LABS: HIV 1&2 SCREEN CENTAUR NEGATIVE (NEGATIVE)
--- NOTE | 2019-02-03 11:43 | IPNPDOC ---
Text Note Date of Service The patient was seen on 02/03/19. NOTE Subjective: Patient is a 28-year-old female with a PMHx of Polysubstance abuse, Migraine headaches, who presented from [facility] because of yellow discoloration of her eyes and skin, associated with light colored stools. Patient is also noted discomfort with urination. . Upon evaluation in the emergency room, patient was found to have an elevation of her liver enzymes. She also had CT abdomen imaging consistent with moderate splenomegaly with a maximum span of 17.5 cm and fatty infiltration of her liver. Patient was admitted to hospitalist service for further evaluation and treatment Patient was seen and examined at the bedside. Patient has reported that she denies any shortness of breath, any sore throat or symptoms of an upper respiratory tract infection. She denies chest pain, palpitations or cough. Patient reports some abdominal discomfort on her right upper side. Denies nausea or vomiting. Has not had a bowel movement in a few days. Reports some urinary discomfort Objective: Vitals (See below) General: Lying in bed, no acute distress, comfortable, appears jaundiced, AAOx3 HEENT: NC, AT CVS: RRR, +S1S2 Lungs: Fair air entry b/l, -w/r/r Abdomen: Soft, nondistended, no significant tenderness on palpation Extremities: - Edema, - Calf tenderness Imaging: - US Abdomen 02/02: Essentially normal right upper quadrant ultrasound. - CT abdomen / pelvis (Triple phase) 02/02: 1. There is moderate splenomegaly with a maximum span of 17.5 centimeters. No focal abnormalities demonstrated. 2. There is a diffuse decrease in hepatic parenchymal density, consistent with fatty infiltration. 3. There is increased feces throughout the colon consistent with constipation. 4. There is gastric distention with retained secretions. Clinical correlation to exclude gastroparesis or gastric outlet obstruction suggested. Assessment and plan: Jaundice - likely 2/2 liver dysfunction, possibly 2/2 hepatitis, likely 2/2 infectious mononucleosis (EBV) - Patient reports an improvement of her abdominal pain - Physical without any significant tenderness - Patient continues to have an improvement in her liver enzymes - Mononucleosis screen is positive; awaiting confirmatory EBV - Hepatitis B negative; Hepatitis A and C are pending - Will start IV fluid hydration - Patient is able to tolerate a full lipid diet. We'll continue to advance - c/w Symptomatic control with Zofran Acute infectious mononucleosis / EBV - Positive mono screen - Awaiting confirmatory EBV screen - Imaging consistent with splenomegaly - Will check peripheral smear - Will c/w Supportive care Possible UTI - Reports some dysuria now - Hx of getting antibiotics in the [facility]; however patient has denied that this morning - Will start Nitrofurantoin Microcytic Anemia - likely 2/2 iron deficiency anemia - Will check reticulocyte count - Will start supplementation with Iron - May require transfusion Lymphocytosis - CBC differential shows lymphocytosis - Will get peripheral smear CT abdomen suggestive of gastroparesis or gastric outlet obstruction - Patient says she had an EGD and Colonoscopy recently at [place] [facility] - Will request records from [facility] GI prophylaxis - c/w Omeprazole DVT prophylaxis - c/w HINA/ Sequentials VS,Fishbone, I+O VS, Fishbone, I+O Laboratory Tests 02/02/19 12:34 Red Blood Count 4.72, Mean Corpuscular Volume 60.6 L, Mean Corpuscular Hemoglobin 18.0 L, Mean Corpuscular Hemoglobin Concent 29.7 L, Red Cell Dist ribution Width 21.2 H 02/03/19 06:25 Red Blood Count 4.28, Mean Corpuscular Volume 57.5 L, Mean Corpuscular Hemoglobin 17.5 L, Mean Corpuscular Hemoglobin Concent 30.5 L, Red Cell Distribution Width 21.2 H, Neutrophils (%) (Auto) 28.9 L, Lymphocytes (%) (Auto) 56.7 H, Monocytes (%) (Auto) 11.1 H, Eosinophils (%) (Auto) 2.8, Basophils (%) (Auto) 0.5, Neutrophils # (Auto) 1.2 L, Lymphocytes # (Auto) 2.3, Monocytes # (Auto) 0.4, Eosinophils # (Auto) 0.1, Basophils # (Auto) 0.0, Calcium Level 8.0 L, Aspartate Amino Transf (AST/SGOT) 708 H, Alanine Aminotransferase (ALT/SGPT) 1311 H, Alkaline Phosphatase 376 H, Total Bilirubin 3.9 H, Total Protein 6.9, Albumin 2.9 L Vital Signs Date Time Temp Pulse Resp B/P (MAP) Pulse Ox O2 Delivery O2 Flow Rate FiO2 02/03/19 06:00 98.7 68 18 104/53 (70) 99 02/03/19 01:15 Room Air I&O- Last 24 Hours up to 6 AM 02/03/19 06:00 Intake Total 450 ml Output Total 0 ml Balance 450 ml MADHAV BRODERICK MD Feb 03, 2019 11:43
[2019-02-03] MEDS: FERROUS SULFATE 325MG TAB PO SCH ×2 (12:29→20:00)
[2019-02-03] MEDS: NITROFURANTOIN (MACROBID) 100 MG CAP PO SCH ×2 (12:29→20:00)
[2019-02-03 12:35] LABS: MONO REFLEX EBV COMP POSITIVE (NEGATIVE)
[2019-02-03 12:36] LABS: HEPATITIS A ANTIBODY IGM POSITIVE (NEGATIVE); HEPATITIS C VIRUS ABY INDEX > 11.0 INDEX (<0.8)
[2019-02-03 14:00] VITALS: BP 104/52
[2019-02-03 22:00] VITALS: BP 119/64
[2019-02-04 06:00] VITALS: BP 103/63
[2019-02-04] MEDS: NS 1,000 ML IV SCH ×2 (06:00→17:15)
[2019-02-04 06:45] LABS: HEMOGLOBIN 7.2 g/dl (12.0-15.5); MEAN CORPUSCULAR HEMOGLOBIN 17.6 pg (27.0-33.0); MEAN CORPUSCULAR VOLUME 58.7 fl (80.0-96.0); PLATELET COUNT, AUTOMATED 194 10^3/uL (150-450); RED BLOOD COUNT 4.09 10^6/uL (4.00-5.40); WHITE BLOOD COUNT 4.1 10^3/uL (4.0-10.0)
[2019-02-04 07:11] LABS: ALBUMIN 2.6 GM/DL (3.2-5.2); ALT/SGPT 931 U/L (12-78); BILIRUBIN,TOTAL 3.6 MG/DL (0.2-1.0); BLOOD UREA NITROGEN 7 MG/DL (7-18); CALCIUM LEVEL 7.7 MG/DL (8.5-10.1); CARBON DIOXIDE LEVEL 24 MEQ/L (21-32); CHLORIDE LEVEL 112 MEQ/L (98-107); CREATININE FOR GFR 0.68 MG/DL (0.55-1.30); GLOMERULAR FILTRATION RATE > 60.0 (>60); GLUCOSE, FASTING 72 MG/DL (70-100); SODIUM LEVEL 140 MEQ/L (136-145); TOTAL PROTEIN 6.7 GM/DL (6.4-8.2)
[2019-02-04 07:57] LABS: BASOPHILS 1 % (0-4); LYMPHOCYTES 63 % (16-52); MONOCYTES 4 % (0-8); NEUTROPHILS 32 % (35-75)
[2019-02-04 07:58] LABS: ANISOCYTOSIS 2+; PLATELET ESTIMATE NORMAL (NORMAL)
[2019-02-04 08:06] LABS: CYTOMEGALOVIRUS IgG ANTIBODY <0.60 U/mL (0.00-0.59); CYTOMEGALOVIRUS IgM ANTIBODY <30.0 AU/mL (0.0-29.9)
[2019-02-04] MEDS: NITROFURANTOIN (MACROBID) 100 MG CAP PO SCH ×2 (09:23→21:24)
[2019-02-04] MEDS: FERROUS SULFATE 325MG TAB PO SCH ×2 (09:23→21:24)
[2019-02-04] MEDS: OMEPRAZOLE 20 MG CAP PO SCH (09:24)
--- NOTE | 2019-02-04 12:09 | IPNPDOC ---
Subjective Date Seen The patient was seen on 02/04/19. Subjective Chief Complaint/HPI Patient seen and examined at bedside. No acute overnight events noted. The patient states that she is feeling better today. However, did note some generalized fatigue and lightheadedness when walking to the bathroom. She will be transfused 1 unit of packed red blood cells. Objective Physical Examination General Exam: Positive: Alert, Cooperative, No Acute Distress ENT Exam: Positive: Atraumatic, Mucous membr. moist/pink Neck Exam: Negative: JVD Chest Exam: Positive: Clear to auscultation, Normal air movement Heart Exam: Positive: Rate Normal, Regular Rhythm, Normal S1, Normal S2 Abdomen Exam: Positive: Soft; Negative: Tenderness Extremity Exam: Positive: Normal pulses; Negative: Clubbing, Cyanosis, Edema, Tenderness, Swelling Psych Exam: Positive: Oriented x 3 Assessment /Plan Plan/VTE VTE Prophylaxis Ordered?: Yes Plan Jaundice, Elevated LFTs - likely 2/2 underlying hepatitis C, and possible acute infectious mononucleosis (EBV) CT Abd/Pel with moderate splenomegaly noted, ?gastric outlet obstruction, gastroparesis--however patient tolerating a diet and had a BM last night w/o any acute complaints Patient reports an improvement of her abdominal pain Mononucleosis screen is positive; awaiting confirmatory EBV Hepatitis C AB positive, HCV RNA level pending LFTs downward trending Cont supportive care, will need to f/u as outpatient for Hep C treatment Microcytic Anemia - likely 2/2 iron deficiency anemia, 2/2 Viral Infection as noted above Iron supplementation started No overt bleeding noted We will transfuse 1 Unit of Blood Possible UTI Urine culture notable for E. Coli Cont Nitrofurantoin GI prophylaxis Omeprazole DVT prophylaxis HINA/ Sequentials VS, I&O, 24H, Fishbone Vital Signs/I&O Vital Signs Date Time Temp Pulse Resp B/P (MAP) Pulse Ox O2 Delivery O2 Flow Rate FiO2 02/04/19 06:00 98.8 67 18 103/63 (76) 99 02/03/19 01:15 Room Air I&O- Last 24 Hours up to 6 AM 02/04/19 06:00 Intake Total 2860 ml Output Total 1700 ml Balance 1160 ml Laboratory Data 24H LABS Laboratory Tests 2 02/04/19 06:26: Nucleated Red Blood Cells % (auto) 0.0, Neutrophils 32L, Lymphocytes (Manual) 63H, Monocytes (Manual) 4, Basophils (Manual) 1, Platelet Estimate NORMAL, Anisocytosis 2+, Anion Gap 4L, Glomerular Filtration Rate > 60.0, Blood Urea Nitrogen 7, Creatinine 0.68, Sodium Level 140, Potassium Level 4.0, Chloride Level 112H, Carbon Dioxide Level 24, Calcium Level 7.7L, Aspartate Amino Transf (AST/SGOT) 419H, Alanine Aminotransferase (ALT/SGPT) 931H, Alkaline Phosphatase 419H, Total Bilirubin 3.6H, Total Protein 6.7, Albumin 2.6L, Albumin/Globulin Ratio 0.63L CBC/BMP Laboratory Tests 02/04/19 06:26 Red Blood Count 4.09, Mean Corpuscular Volume 58.7 L, Mean Corpuscular Hemoglobin 17.6 L, Mean Corpuscular Hemoglobin Concent 30.0 L, Red Cell Distribution Width 21.9 H, Calcium Level 7.7 L, Aspartate Amino Transf (AST/SGOT) 419 H, Alanine Aminotransferase (ALT/SGPT) 931 H, Alkaline Phosphatase 419 H, Total Bilirubin 3.6 H, Total Protein 6.7, Albumin 2.6 L Microbiology Microbiology 02/02/19 Wet Prep - Final, Complete 02/02/19 Urine Culture - Final, Complete Escherichia Coli RAMY ELIAS MD Feb 04, 2019 12:09
[2019-02-04 14:00] VITALS: BP 119/68
[2019-02-04] MEDS: IBUPROFEN 600 MG TAB PO PRN (17:17)
--- NOTE | 2019-02-04 21:45 | CR ---
DATE OF CONSULTATION: 02/03/2019 This is a 28-year-old white female with known history of polysubstance abuse, migraine headaches, and presents to the emergency room recurrent urinary tract infection (UTI), who was also found to have yellow discoloration of her eyes and skin and su-colored stools. The patient apparently has been in shelter for approximately 2 weeks. The patient has been describing low back pain, dull in nature, radiating to her suprapubic area. She has associated dysuria. The patient was seen by a physician and was given antibiotics for her UTI. The patient felt somewhat better from the UTI but then developed the skin discoloration. Blood tests were performed in the emergency room (ER) and showed transaminitis of 1274 and 1816, bilirubin of 4. A CT scan of the abdomen showed moderate splenomegaly. No biliary dilatation. The patient has no family history of liver disorders. She denies any blood transfusions, and she has been incarcerated, so no recent history of intravenous (IV) drug abuse. The patient has previous episode of previous hepatitis. ALLERGIES: NARCOTICS and TYLENOL. PAST MEDICAL HISTORY: As above. PAST SURGICAL HISTORY: 1. Appendectomy. 2. Dilatation and curettages (D and C's). SOCIAL HISTORY: The patient smokes alcohol. The patient denies IV drugs, consistent with heroin and other IV drug abuse. REVIEW OF SYSTEMS: Noncontributory to the above problem. PHYSICAL EXAMINATION: GENERAL: This is a well-developed, well-nourished white female, somewhat jaundiced. Appears stated age. CHEST: Clear. CARDIOVASCULAR: Showed a regular rhythm. No murmurs or gallops. Normal physiological split, S1-S2. ABDOMEN: Soft, nontender. No masses, guarding, rebound, hepatosplenomegaly. Bowel sounds positive. LABORATORY STUDIES: On admission, shows a CBC with a white count of 4000, hemoglobin and hematocrit were 8.5 and 28.6 with an MCV of 60.6. The patient's platelets were 197,000. CBC on February 03 came down to 7.5 at 24.6. The patient has a high reticulocyte count. On differential she had 61% lymphocytes on peripheral. The differential was likely Laura Soto virus infection. Peripheral smear interpretation: Microcytic anemia with scattered target forms. No abnormal immature leukocytes seen. Normal platelets. The patient's coagulation studies showed normal INR 1.12. Chemistry showed today liver functions have come down with a bilirubin of 3.9, AST is 708, ALT is 1311, alkaline phosphatase was 376, albumin is 3.3 on admission, 2.9 today. Vitamin B12 and folate levels are within normal range. Serology testing are all pending, except for the patient was positive for a mononucleosis screen. ANALYSIS: Abnormal liver function tests. At the present time, the patient probably has infectious mononucleosis. 1. The patient should avoid any physical sports, since her spleen is enlarged and the concern will be for splenic rupture. 2. The patient will take at least 2-3 months to have full recovery. Setting of the Laura-Soto virus could possibly continue for over a year. 3. The patient should have her own towels and should not share any razors or toothbrushes. 4. There is no medication to shorten the course of this disease. Acyclovir was tried, but it has not shown a clinical impact. 5. The patient needs lost of rest, and, as far as diet, there are no restrictions.
[2019-02-04 22:00] VITALS: BP 107/61
[2019-02-05 00:11] LABS: EBV VIRAL CAPSID AG IgM 83.2 U/mL (0.0-35.9)
[2019-02-05 06:00] VITALS: BP 105/61
[2019-02-05] MEDS: NS 1,000 ML IV SCH ×2 (06:10→08:48)
[2019-02-05 06:19] LABS: BASO % 0.8 % (0.0-1.0); EOS # 0.2 10^3/uL (0.0-0.50); HEMATOCRIT 26.7 % (36.0-47.0); HEMOGLOBIN 8.1 g/dl (12.0-15.5); LYMPH # 2.2 10^3/uL (1.5-6.5); LYMPH % 56.4 % (24.0-44.0); MEAN CORPUSCULAR HEMOGLOBIN 18.7 pg (27.0-33.0); MEAN CORPUSCULAR HGB CONC 30.3 g/dl (32.0-36.5); MEAN CORPUSCULAR VOLUME 61.5 fl (80.0-96.0); MONO # 0.4 10^3/uL (0.0-0.8); MONO % 10.3 % (0.0-5.0); NEUTROPHILS # 1.1 10^3/uL (1.8-7.7); NEUTROPHILS % 28.2 % (36.0-66.0); PLATELET COUNT, AUTOMATED 190 10^3/uL (150-450); RED BLOOD COUNT 4.34 10^6/uL (4.00-5.40)
[2019-02-05 06:44] LABS: ALBUMIN 2.5 GM/DL (3.2-5.2); ALT/SGPT 711 U/L (12-78); BILIRUBIN,TOTAL 4.7 MG/DL (0.2-1.0); BLOOD UREA NITROGEN 6 MG/DL (7-18); CALCIUM LEVEL 7.7 MG/DL (8.5-10.1); CARBON DIOXIDE LEVEL 24 MEQ/L (21-32); CHLORIDE LEVEL 111 MEQ/L (98-107); CREATININE FOR GFR 0.69 MG/DL (0.55-1.30); GLOMERULAR FILTRATION RATE > 60.0 (>60); GLUCOSE, FASTING 71 MG/DL (70-100); SODIUM LEVEL 140 MEQ/L (136-145); TOTAL PROTEIN 6.2 GM/DL (6.4-8.2)
[2019-02-05] MEDS: FERROUS SULFATE 325MG TAB PO SCH (08:48)
[2019-02-05] MEDS: NITROFURANTOIN (MACROBID) 100 MG CAP PO SCH (08:48)
[2019-02-05] MEDS: IBUPROFEN 600 MG TAB PO PRN (08:48)
[2019-02-05] MEDS: OMEPRAZOLE 20 MG CAP PO SCH (08:48)
[2019-02-05] MEDS ORDERED: FERR325T18 PO (10:24)
[2019-02-05] MEDS ORDERED: NITR100C2 PO (10:24)
--- NOTE | 2019-02-05 15:34 | DS.PDOC ---
Discharge Summary General Date of Admission Feb 03, 2019 at 00:26 Date of Discharge 02/05/19 Specialist/Consultants Involve Dr. Louise of GI Discharge Summary PROCEDURES PERFORMED DURING STAY: None. ADMITTING/DISCHARGE DIAGNOSES: Jaundice, Elevated LFTs - likely 2/2 underlying hepatitis C, and possible acute infectious mononucleosis (EBV) Newly Diagnosed Hepatitis C Microcytic Anemia - likely 2/2 iron deficiency anemia, 2/2 Viral Infection as noted above Urinary tract infection COMPLICATIONS/CHIEF COMPLAINT: Acute Hepatitis. HISTORY OF PRESENT ILLNESS: . 28-year-old female with a PMHx of Polysubstance abuse, Migraine headaches, who presented from alf because of yellow discoloration of her eyes and skin, associated with light colored stools. Patient was also noted to have discomfort with urination. . Upon evaluation in the emergency room, patient was found to have an elevation of her liver enzymes. She also had CT abdomen imaging consistent with moderate splenomegaly with a maximum span of 17.5 cm and fatty infiltration of her liver. Patient was admitted to hospitalist service for further evaluation and treatment. Jaundice, Elevated LFTs - likely 2/2 acute infectious mononucleosis (EBV), and underlying hepatitis C CT Abd/Pel with moderate splenomegaly noted, ?gastric outlet obstruction, gastroparesis--however patient tolerating a diet and had a BM here w/o any acute complaints Patient reports resolution of her abdominal pain Mononucleosis screen is positive; EBV IgM/IgG also positive Hepatitis C AB positive, HCV RNA level pending LFTs downward trending Cont supportive care, will need to f/u as outpatient for Hep C treatment Patient counseled on refraining from contact sports (concern for splenomegaly and rupture), or overexertion Newly diagnosed Hep C Patient denies history of the same in the past Reports active IV Drug Abuse since March 2018 Counseled on the need to follow up outpatient with HCV RNA level and Infectious Diseases consultation for further work up/treatment Microcytic Anemia - likely 2/2 iron deficiency anemia, 2/2 Viral Infection as noted above Iron supplementation started No overt bleeding noted s/p transfusion of 1 Unit of Blood Hgb stable thereafter UTI Urine culture notable for E. Coli Cont Nitrofurantoin for 5 more days Implications including risks, benefits, and alternative options discussed at length regarding macrobid use and . Patient verbalized understanding of the same GI prophylaxis Omeprazole DISCHARGE MEDICATIONS: Please see below. ALLERGIES: Please see below. PHYSICAL EXAMINATION ON DISCHARGE: VITAL SIGNS: Please see below. General Exam: Positive: Alert, Cooperative, No Acute Distress ENT Exam: Positive: Atraumatic, Mucous membr. moist/pink Neck Exam: Negative: JVD Chest Exam: Positive: Clear to auscultation, Normal air movement Heart Exam: Positive: Rate Normal, Regular Rhythm, Normal S1, Normal S2 Abdomen Exam: Positive: Soft; Negative: Tenderness Extremity Exam: Positive: Normal pulses; Negative: Clubbing, Cyanosis, Edema, Tenderness, Swelling Psych Exam: Positive: Oriented x 3 LABORATORY DATA: Please see below. IMAGING: Clinical: Elevated liver function tests. Technique: Lopez scale ultrasound examination using curved array transducer. Findings: Liver and visualized pancreas are normal in contour, size, echogenicity without focal hepatic or pancreatic lesions identified. The gallbladder is contracted, but without obvious gallstones or wall thickening. No biliary ductal dilatation is appreciated and the common bile duct measures 2.1 mm diameter. The right kidney is normal in reniform shape without hydronephrosis and measures 12.2 x 4.5 x 3.9 cm. No ascites. Impression: Essentially normal right upper quadrant ultrasound. EXAM: CT Abdomen and Pelvis Without and With Contrast EXAM DATE/TIME: 02/02/2019 9:59 PM CLINICAL HISTORY: 28 years old, female; Abdominal pain; Generalized; Additional info: Triple phse for liver TECHNIQUE: Imaging protocol: Axial computed tomography images of the abdomen and pelvis without and with intravenous contrast. Coronal and sagittal reformatted images were created and reviewed. Radiation optimization: All CT scans at this facility use at least one of these dose optimization techniques: automated exposure control; mA and/or kV adjustment per patient size (includes targeted exams where dose is matched to clinical indication); or iterative reconstruction. Contrast material: ISOVUE 370; Contrast volume: 100 ml; Contrast route: IV; COMPARISON: Abdomen, limited US 02/02/2019 3:31 PM FINDINGS: Liver: There is a diffuse decrease in hepatic parenchymal density, consistent with fatty infiltration. Gallbladder and bile ducts: Cholelithiasis. No CT evidence of cholecystitis. Pancreas: Normal. No ductal dilation. Spleen: There is moderate splenomegaly with a maximum span of 17.5 centimeters. No focal abnormalities demonstrated. Adrenals: Normal. No mass. Kidneys and ureters: Normal. No hydronephrosis. Stomach and bowel: There is increased feces throughout the colon consistent with constipation. There is gastric distention with retained secretions. Clinical correlation to exclude gastroparesis or gastric outlet obstruction suggested. Appendix: No evidence of appendicitis. Intraperitoneal space: Normal. No free air. No significant fluid collection. Vasculature: Normal. No abdominal aortic aneurysm. Lymph nodes: Normal. No enlarged lymph nodes. Bladder: Unremarkable as visualized. Reproductive: Unremarkable as visualized. Bones/joints: No acute fracture. No dislocation. Soft tissues: Small umbilical hernia. Otherwise unremarkable. IMPRESSION: 1. There is moderate splenomegaly with a maximum span of 17.5 centimeters. No focal abnormalities demonstrated. 2. There is a diffuse decrease in hepatic parenchymal density, consistent with fatty infiltration. 3. There is increased feces throughout the colon consistent with constipation. 4. There is gastric distention with retained secretions. Clinical correlation to exclude gastroparesis or gastric outlet obstruction suggested. PROGNOSIS: Fair ACTIVITY: As tolerated. DIET: Regular diet DISCHARGE PLAN: DISPOSITION: 70 Xfer Other. DISCHARGE INSTRUCTIONS: Follow-up with primary care physician within 7 days. Follow-up with infectious disease specialist as an outpatient in 1-2 months for workup and treatment of hepatitis C. Return to the ER for any acute emergencies. DISCHARGE CONDITION: Stable. TIME SPENT ON DISCHARGE: Greater than 30 minutes. Vital Signs/I&Os Vital Signs Date Time Temp Pulse Resp B/P (MAP) Pulse Ox O2 Delivery O2 Flow Rate FiO2 02/05/19 06:00 98.8 67 16 105/61 (76) 99 02/03/19 01:15 Room Air I&O- Last 24 Hours up to 6 AM 02/05/19 06:00 Intake Total 1620 ml Output Total 1200 ml Balance 420 ml Laboratory Data Labs 24H Laboratory Tests 2 02/05/19 05:38: Immature Granulocyte % (Auto) 0.3, White Blood Count 4.0, Red Blood Count 4.34, Hemoglobin 8.1L, Hematocrit 26.7L, Mean Corpuscular Volume 61.5L, Mean Corpuscular Hemoglobin 18.7L, Mean Corpuscular Hemoglobin Concent 30.3L, Red Cell Distribution Width 26.3H, Platelet Count 190, Neutrophils (%) (Auto) 28.2L, Lymphocytes (%) (Auto) 56.4H, Monocytes (%) (Auto) 10.3H, Eosinophils (%) (Auto) 4.0H, Basophils (%) (Auto) 0.8, Neutrophils # (Auto) 1.1L, Lymphocytes # (Auto) 2.2, Monocytes # (Auto) 0.4, Eosinophils # (Auto) 0.2, Basophils # (Auto) 0.0, Nucleated Red Blood Cells % (auto) 0.0, Anion Gap 5L, Glomerular Filtration Rate > 60.0, Blood Urea Nitrogen 6L, Creatinine 0.69, Sodium Level 140, Potassium Level 4.0, Chloride Level 111H, Carbon Dioxide Level 24, Calcium Level 7.7L, Aspartate Amino Transf (AST/SGOT) 298H, Alanine Aminotransferase (ALT/SGPT) 711H, Alkaline Phosphatase 462H, Total Bilirubin 4.7H, Total Protein 6.2L, Albumin 2.5L, Albumin/Globulin Ratio 0.68L CBC/BMP Laboratory Tests 02/05/19 05:38 Red Blood Count 4.34, Mean Corpuscular Volume 61.5 L, Mean Corpuscular Hemoglobin 18.7 L, Mean Corpuscular Hemoglobin Concent 30.3 L, Red Cell Distribution Width 26.3 H, Neutrophils (%) (Auto) 28.2 L, Lymphocytes (%) (Auto) 56.4 H, Monocytes (%) (Auto) 10.3 H, Eosinophils (%) (Auto) 4.0 H, Basophils (%) (Auto) 0.8, Neutrophils # (Auto) 1.1 L, Lymphocytes # (Auto) 2.2, Monocytes # (Auto) 0.4, Eosinophils # (Auto) 0.2, Basophils # (Auto) 0.0, Calcium Level 7.7 L, Aspartate Amino Transf (AST/SGOT) 298 H, Alanine Aminotransferase (ALT/SGPT) 711 H, Alkaline Phosphatase 462 H, Total Bilirubin 4.7 H, Total Protein 6.2 L, Albumin 2.5 L Microbiology Microbiology 02/02/19 Wet Prep - Final, Complete 02/02/19 Urine Culture - Final, Complete Escherichia Coli Discharge Medications Scheduled Ferrous Sulfate (Ferrous Sulfate) 325 Mg Tablet, 325 MG PO BID Nitrofurantoin Monohyd/M-Cryst (Nitrofurantoin Ector-Mcr 100 mg) 100 Mg Capsule, 100 MG PO BID Allergies Coded Allergies: codeine (Verified Allergy, Severe, almost dies, 02/02/19) acetaminophen (Verified Allergy, Intermediate, rash, 02/02/19) hydrocodone (Verified Allergy, Intermediate, rash, 02/02/19) morphine (Verified Allergy, Intermediate, unknown, 02/02/19) trazodone (Verified Allergy, Intermediate, rash, 02/02/19) RAMY ELIAS MD Feb 05, 2019 15:34
== END 2019-02-05 11:55 ==
LOC: M ED 11:15 → M ED INP 02-03 00:26 → M MS5PR 02-03 01:30
PROVIDERS: ADMIT Internal Medicine Nephrology; ATTEND Internal Medicine
PROC: 30233N1 Transfusion of Nonautologous Red Blood Cells into Peripheral Vein, Percutaneous Approach (ICD-10-PCS; principal; 2019-02-04)
DX: B17.10 Acute hepatitis C without hepatic coma (principal); R17 Unspecified jaundice; N39.0 Urinary tract infection, site not specified; B27.90 Infectious mononucleosis, unspecified without complication; D50.9 Iron deficiency anemia, unspecified; G43.909 Migraine, unspecified, not intractable, without status migrainosus; B96.29 Other Escherichia coli [E. coli] as the cause of diseases classified elsewhere; Z88.5 Allergy status to narcotic agent; Z88.8 Allergy status to other drugs, medicaments and biological substances

== ENCOUNTER 2019-04-23 21:20 | Inpatient (IN) | payer OTHER ==
[~2019-04-23] VITALS: Ht 177.8 cm; Wt 72.5 kg
[~2019-04-23 21:20] MED LIST changes: +FERR325T18 PO; +NITR100C2 PO
[2019-04-23] MEDS ORDERED: MINI2CAP PO (21:39)
[2019-04-23] MEDS ORDERED: SERO50TA PO (21:39)
[2019-04-23] MEDS ORDERED: GABA-845 PO (21:39)
[2019-04-23 22:58] LABS: BASO % 0.5 % (0.0-1.0); EOS # 0.1 10^3/uL (0.0-0.5); EOS % 2.5 % (0.0-3.0); HEMOGLOBIN 10.6 g/dl (12.0-15.5); LYMPH # 2.1 10^3/uL (1.5-5.0); LYMPH % 48.2 % (24.0-44.0); MEAN CORPUSCULAR HGB CONC 33.1 g/dl (32.0-36.5); MEAN CORPUSCULAR VOLUME 78.4 fl (80.0-96.0); MONO # 0.5 10^3/uL (0.0-0.8); MONO % 11.6 % (0.0-5.0); NEUTROPHILS # 1.6 10^3/uL (1.5-8.5); NEUTROPHILS % 37.2 % (36.0-66.0); PLATELET COUNT, AUTOMATED 154 10^3/uL (150-450); RED BLOOD COUNT 4.08 10^6/uL (4.00-5.40); WHITE BLOOD COUNT 4.4 10^3/uL (4.0-10.0)
[2019-04-23 23:01] LABS: HCG, SERUM QUALITATIVE NEGATIVE (NEGATIVE)
[2019-04-23 23:02] LABS: ACETAMINOPHEN LEVEL < 2.0 UG/ML (10.0-30.0); ALT/SGPT 37 U/L (12-78); BILIRUBIN,DIRECT 0.1 MG/DL (0.0-0.2); BILIRUBIN,TOTAL 0.3 MG/DL (0.2-1.0); BLOOD UREA NITROGEN 13 MG/DL (7-18); CALCIUM LEVEL 9.4 MG/DL (8.5-10.1); CARBON DIOXIDE LEVEL 26 MEQ/L (21-32); CHLORIDE LEVEL 104 MEQ/L (98-107); CPK CREATINE PHOSPHOKINASE 39 U/L (26-192); CREATININE FOR GFR 0.79 MG/DL (0.55-1.30); ETHYL ALCOHOL (ETHANOL) < 0.003 % (0.000-0.010); GLOMERULAR FILTRATION RATE > 60.0 (>60); GLUCOSE, FASTING 106 MG/DL (70-100); POTASSIUM SERUM 3.5 MEQ/L (3.5-5.1); SALICYLATE LEVEL < 1.7 MG/DL (5.0-30.0); SODIUM LEVEL 140 MEQ/L (136-145); THYROID STIMULATING HORMONE 0.658 uIU/ML (0.358-3.740); TOTAL PROTEIN 7.9 GM/DL (6.4-8.2)
[2019-04-24] MEDS ORDERED: MIRALAX *UNIT DOSE* 17GM PACKET PO PRN (03:45)
[2019-04-24] MEDS ORDERED: NICOTINE 14 MG/24 HR TRANSDERMAL TD ONE (03:45)
--- NOTE | 2019-04-24 03:54 | HPEPDOC ---
General Date of Admission 04/24/19 Date of Service: Apr 24, 2019 Attending Physician: RODRIGUE MORALES DO Chief Complaint The patient is a 28-year-old female admitted with a reason for visit of Drug I ngestion. Source: Patient, Police Exam Limitations: Intoxication Timing/Duration: 4-6 hours Severity: Mild History of Present Illness Patient is 28 years old female with past mental history of polysubstance abuse including methamphetamine, heroin IV, hepatitis A, hepatitis C was brought to the hospital by police. Presumably, patient swallowed 5 small pack with heroin trying to hide the substance from the police. On the admission patient received activated charcoal. Poison control recommended observation for next 24 hours. Abdominal x-ray did not reveal foreign body in her bowels. Telemetry showed normal sinus rhythm. During my interview patient was lethargic and obtunded, but she did not have pinpoint pupils. The police communications operator told me she could have taken IV heroin or other substance before her arrest by police. Home Medications Scheduled Gabapentin (Gabapentin) 400 Mg Capsule, 400 MG PO TID, (Reported) Prazosin HCl (Minipress) 2 Mg Capsule, 3 MG PO QHS, (Reported) Quetiapine Fumarate (Seroquel) 50 Mg Tablet, 50 MG PO QHS, (Reported) Allergies Coded Allergies: codeine (Verified Allergy, Severe, almost dies, 02/02/19) acetaminophen (Verified Allergy, Intermediate, rash, 02/02/19) hydrocodone (Verified Allergy, Intermediate, rash, 02/02/19) morphine (Verified Allergy, Intermediate, unknown, 02/02/19) trazodone (Verified Allergy, Intermediate, rash, 02/02/19) Past Medical History Medical History Hepatitis C, hepatitis B, polysubstance abuse, anxiety, depression Family History Father has schizophrenia Social History * Smoker: current smoker Alcohol: occationally Drugs: heroin, IV drug use A-FIB/CHADSVASC A-FIB History Current/History of A-Fib/PAF?: No Current PO Anticoag Therapy: No Review of Systems Constitutional: Denies: Chills, Fever Eyes: Denies: Pain, Vision change ENT: Denies: Head Aches Skin: Denies: Rash, Lesions Pulmonary: Denies: Dyspnea, Cough Cardiovascular: Denies: Chest Pain, Palpitations Gastrointestinal: Denies: Nausea Genitourinary: Denies: Dysuria, Frequency Hematologic: Denies: Bruising, Bleeding Excessively Endocrine: Denies: Polydipsia, Polyphagia Musculoskeletal: Denies: Neck Pain, Back Pain Neurological: Denies: Weakness, Numbness Psych: Reports: Anxiety, Depression Physical Examination General Exam: Positive: Other (lethargic) Eye Exam: Positive: PERRLA, EOMI (normal-sized pupils) ENT Exam: Positive: Atraumatic, Mucous membr. moist/pink Neck Exam: Positive: Supple; Negative: JVD Chest Exam: Positive: Clear to auscultation Heart Exam: Positive: Rate Normal Telemetry: Positive: No significant arrhythmia Abdomen Exam: Positive: Normal bowel sounds Extremity Exam: Negative: Clubbing, Cyanosis Skin Exam: Positive: Nl turgor and temperature Neuro Exam: Positive: Sensation Intact Psych Exam: Positive: Other (obtunded) Vital Signs Vital Signs Date Time Temp Pulse Resp B/P (MAP) Pulse Ox O2 Delivery O2 Flow Rate FiO2 04/24/19 02:46 65 16 120/77 (91) 98 Room Air 04/23/19 21:21 96.7 Laboratory Data Labs 24H Laboratory Tests 2 04/23/19 21:32: Bedside Glucose (Misc Panel) 100 04/23/19 22:13: Immature Granulocyte % (Auto) 0.0, White Blood Count 4.4, Red Blood Count 4.08, Hemoglobin 10.6L, Hematocrit 32.0L, Mean Corpuscular Volume 78.4L, Mean Corpuscular Hemoglobin 26.0L, Mean Corpuscular Hemoglobin Concent 33.1, Red Cell Distribution Width 14.6H, Platelet Count 154, Neutrophils (%) (Auto) 37.2, Lymphocytes (%) (Auto) 48.2H, Monocytes (%) (Auto) 11.6H, Eosinophils (%) (Auto) 2.5, Basophils (%) (Auto) 0.5, Neutrophils # (Auto) 1.6, Lymphocytes # (Auto) 2.1, Monocytes # (Auto) 0.5, Eosinophils # (Auto) 0.1, Basophils # (Auto) 0.0, Nucleated Red Blood Cells % (auto) 0.0, Anion Gap 10, Glomerular Filtration Rate > 60.0, Calcium Level 9.4, Aspartate Amino Transf (AST/SGOT) 24, Alanine Aminotransferase (ALT/SGPT) 37, Alkaline Phosphatase 68, Total Bilirubin 0.3, Direct Bilirubin 0.1, Total Creatine Kinase 39, Total Protein 7.9, Albumin 4.0, Albumin/Globulin Ratio 1.03, Thyroid Stimulating Hormone (TSH) 0.658, Human C horionic Gonadotropin, Qual NEGATIVE, Salicylates Level < 1.7L, Acetaminophen Level < 2.0L, Ethyl Alcohol Level < 0.003 CBC/BMP Laboratory Tests 04/23/19 22:13 Red Blood Count 4.08, Mean Corpuscular Volume 78.4 L, Mean Corpuscular Hemoglobin 26.0 L, Mean Corpuscular Hemoglobin Concent 33.1, Red Cell Distribution Width 14.6 H, Neutrophils (%) (Auto) 37.2, Lymphocytes (%) (Auto) 48.2 H, Monocytes (%) (Auto) 11.6 H, Eosinophils (%) (Auto) 2.5, Basophils (%) (Auto) 0.5, Neutrophils # (Auto) 1.6, Lymphocytes # (Auto) 2.1, Monocytes # (Auto) 0.5, Eosinophils # (Auto) 0.1, Basophils # (Auto) 0.0 Assessment/Plan Patient is 28 years old female with past mental history of polysubstance abuse including methamphetamine, heroin IV, hepatitis A, hepatitis C was brought to the hospital by police. Presumably, patient swallowed 5 small pack with heroin trying to hide the substance from the police. On the admission patient received activated charcoal. Poison control recommended observation for next 24 hours. Abdominal x-ray did not reveal foreign body in her bowels. Telemetry showed normal sinus rhythm. During my interview patient was lethargic and obtunded, but she did not have pinpoint pupils. The police communications operator told me she could have taken IV heroin or other substance before her arrest by police Problems (1) Opioid abuse Status: Acute Problem Text: Continue telemetry for the next 24 hours Continue to monitor vital signs Naloxone if she developed opioid intoxication (2) Nicotine dependence Problem Text: Nicotine patch Plan / VTE VTE Prophylaxis Ordered?: Yes RODRIGUE MORALES DO Apr 24, 2019 03:54
[2019-04-24 04:50] VITALS: BP 104/68
--- NOTE | 2019-04-24 05:57 | ECGEPIP ---
[facility] - ED Test Date: 2019-04-23 Pat Name: CARRIE TRINIDAD Department: Room: - Gender: Female Global Supply Chain Director: hieu : 1990 Requested By: KISHORE Goyal Order Number: [id number] Reading MD: Kanu Quiroz Measurements Intervals [place] Rate: 75 P: 73 MN: 163 QRS: 96 QRSD: 118 T: 29 QT: 360 QTc: 404 Interpretive Statements SINUS RHYTHM BORDERLINE RIGHT AXIS DEVIATION MODERATE INTRAVENTRICULAR CONDUCTION DELAY NO PRIORS FOR COMPARISON Electronically Signed on 04-24-2019 5:57:04 EDT by Kanu Quiroz
[2019-04-24 06:00] VITALS: BP 101/65
--- NOTE | 2019-04-24 09:39 | REP ---
KUB: REASON: History of drug overdose. PRIORS: None. FINDINGS: KUB shows the intestinal gas pattern to be nonspecific. The organ silhouettes insofar as delineated are unremarkable. There is no evidence of free intraperitoneal air. IMPRESSION: Nonspecific. Electronically Signed by Hunter Lopez DO 04/24/2019 09:48 A
[2019-04-24 10:00] VITALS: BP 100/49; O2SAT 100
[2019-04-24] MEDS ORDERED: NALOXONE INJ 2 MG/2 ML SYRINGE (J2310) IV PRN (12:00)
[2019-04-24] MEDS: KCL 20MEQ in NS 1000ML 1,000 ML IV SCH ×2 (12:28→20:04)
[2019-04-24] MEDS: HEPARIN SOD (PORCINE) 5000 UNITS/ML VIAL SC SCH ×2 (12:31→22:18)
[2019-04-24 14:00] VITALS: BP 118/67; O2SAT 100
[2019-04-24 17:10] LABS: AMPHETAMINES LEVEL URINE POSITIVE (NEGATIVE); BARBITURATES URINE NEGATIVE (NEGATIVE); BENZODIAZEPINES URINE NEGATIVE (NEGATIVE); CANNABINOIDS URINE NEGATIVE (NEGATIVE); COCAINE METABOLITE URINE NEGATIVE (NEGATIVE); METHADONE URINE NEGATIVE (NEGATIVE); OPIATES URINE POSITIVE (NEGATIVE); PHENCYCLIDINE URINE NEGATIVE (NEGATIVE)
[2019-04-24 18:00] VITALS: BP 101/54; O2SAT 100
[2019-04-24 20:00] VITALS: BP 105/68
[2019-04-24] MEDS ORDERED: CHARCOAL ACTIVATED LIQUID 25 GM/120 ML BTL PO ONE ×2 (23:00)
[2019-04-25] MEDS: KCL 20MEQ in NS 1000ML 1,000 ML IV SCH ×2 (03:52→10:45)
[2019-04-25 06:00] VITALS: BP 117/68
[2019-04-25 06:35] LABS: HEMOGLOBIN 10.3 g/dl (12.0-15.5); MEAN CORPUSCULAR HEMOGLOBIN 26.1 pg (27.0-33.0); MEAN CORPUSCULAR HGB CONC 32.2 g/dl (32.0-36.5); PLATELET COUNT, AUTOMATED 151 10^3/uL (150-450); RED BLOOD COUNT 3.95 10^6/uL (4.00-5.40); WHITE BLOOD COUNT 3.4 10^3/uL (4.0-10.0)
[2019-04-25 07:01] LABS: BLOOD UREA NITROGEN 6 MG/DL (7-18); CALCIUM LEVEL 8.2 MG/DL (8.5-10.1); CARBON DIOXIDE LEVEL 24 MEQ/L (21-32); CHLORIDE LEVEL 113 MEQ/L (98-107); CREATININE FOR GFR 0.69 MG/DL (0.55-1.30); GLOMERULAR FILTRATION RATE > 60.0 (>60); GLUCOSE, FASTING 82 MG/DL (70-100); POTASSIUM SERUM 4.1 MEQ/L (3.5-5.1); SODIUM LEVEL 143 MEQ/L (136-145)
--- NOTE | 2019-04-25 07:42 | IPN ---
DATE: 04/24/2019 Julee is on hospitalist service, admitted after reportedly swallowing bags containing heroin to avoid an arrest. Per nursing staff, the story has changed. She has gone from five small packages she swallowed, saying she swallowed one packet and then some type of paper that was impregnated with MDMA. (She is on activated charcoal.) Poison control has been contacted. She currently does not have Narcan ordered. Mental status is improved. She is more alert. She answerers questions. She prefers to sleep, but she is not excessively sedated. PHYSICAL EXAM: 100/49, pulse 50, respiratory rate 14, 100% oxygen saturation. Pupils are normal size and react. She is awake and answers questions appropriately. LUNGS: Clear. HEART: Regular rate and rhythm. ABDOMEN: Soft. Nontender. LABS: No labs ordered for today. IMPRESSION: Possible ingestion of bags of opiate. PLAN: Continue her activated charcoal. I have ordered intravenous fluids. She does not have any Narcan ordered, so we ordered that in case she does have a sudden exposure. Plan is that she could be considered stable for entering into the legal system tomorrow if she is passing charcoal and has not had an event that would suggest exposure to ingested opiate.
[2019-04-25] MEDS: HEPARIN SOD (PORCINE) 5000 UNITS/ML VIAL SC SCH (08:57)
[2019-04-25 10:00] VITALS: BP 118/69
[2019-04-25] MEDS ORDERED: LACTULOSE 20 GM/30 ML SYRUP UD PO ONE (10:45)
[2019-04-25] MEDS ORDERED: LACTULOSE 20 GM/30 ML SYRUP UD PO SCH ×2 (12:00→18:00)
--- NOTE | 2019-04-25 12:11 | IPNPDOC ---
Text Note Date of Service The patient was seen on 04/25/19. NOTE Subjective: Patient is a 28-year-old female with a PMHx of polysubstance abuse (Methamphetamine, Heroin), Hepatitis A & C, Anxiety / Depression was brought to emergency room by police after she was presumed to of swallowed 5 small packs of heroin/possible MDMA. In the emergency room, patient has received activated charcoal and poison control was contacted. Their recommendations were for observation over the next 24 hours. Imaging the emergency room was negative for any foreign bodies within the bowel. Patient was seen and examined at the bedside. , Currently patient denies any chest pain, shortness breath or palpitations. They deny any nausea, vomiting, or abdominal pain. They do not report any recent bowel movements. They deny any discomfort with urination. Objective: Vitals (See below) General: Lying in bed, no acute distress, comfortable, AAOx3 HEENT: NC, AT CVS: +S1S2 Lungs: Fair air entry b/l, -w/r/r Abdomen: Soft, ND, NT Extremities: - Edema, - Calf tenderness Assessment and plan: Intentional consumption of drug bags - Patient remains hemodynamically stable - No significant electrolyte abnormalities, normal kidney function, normal liver function - s/p Activated charcoal - Poison control has been contacted - Patient denies any suicidal or homicidal ideation - Will start Lactulose q6h to induce bowel movement; anticipate bowel movement today/tomorrow - She can be returned back into the legal system thereafter Polysubstance abuse (Methamphetamine, Heroin) - c/w Narcan PRN Hepatitis A & C - Will defer to outpatient provider for further evaluation and treatment Anxiety / Depression - Currently not on any medications Nicotine dependence - Patient has refused nicotine patches DVT prophylaxis - c/w Heparin VS,Fishbone, I+O VS, Fishbone, I+O Laboratory Tests 04/25/19 06:10 Red Blood Count 3.95 L, Mean Corpuscular Volume 81.0, Mean Corpuscular Hemoglobin 26.1 L, Mean Corpuscular Hemoglobin Concent 32.2, Red Cell Dis tribution Width 14.6 H, Calcium Level 8.2 L Vital Signs Date Time Temp Pulse Resp B/P (MAP) Pulse Ox O2 Delivery O2 Flow Rate FiO2 04/25/19 10:00 98.5 61 17 118/69 (85) 100 04/24/19 18:00 Room Air I&O- Last 24 Hours up to 6 AM 04/25/19 06:00 Intake Total 2220 ml Output Total 250 ml Balance 1970 ml MADHAV BRODERICK MD Apr 25, 2019 12:11
[2019-04-25 14:00] VITALS: BP 109/73
[2019-04-25 14:38] VITALS: O2SAT 100
[2019-04-25] MEDS ORDERED: MOM 30ML SUSPENSION UDC PO ONE (14:45)
[2019-04-25 18:00] VITALS: BP 114/65
--- NOTE | 2019-04-26 11:19 | DS.PDOC ---
Discharge Summary General Date of Admission Apr 25, 2019 at 12:11 Date of Discharge 04/26/2019 Discharge Summary PROCEDURES PERFORMED DURING STAY: [None]. ADMITTING DIAGNOSES / DISCHARGE DIAGNOSES: Intentional consumption of drug bags, non-suicidal Polysubstance abuse (Methamphetamine, Heroin) Hepatitis A & C Anxiety / Depression Nicotine dependence DVT prophylaxis COMPLICATIONS/CHIEF COMPLAINT: Nicotine Dependence, Opioid Abuse. HISTORY OF PRESENT ILLNESS: Patient is a 28-year-old female with a PMHx of polysubstance abuse (Me thamphetamine, Heroin), Hepatitis A & C, Anxiety / Depression was brought to emergency room by police after she was presumed to of swallowed 5 small packs of heroin/possible MDMA. In the emergency room, patient has received activated charcoal and poison control was contacted. Their recommendations were for observation over the next 24 hours. Imaging the emergency room was negative for any foreign bodies within the bowel. HOSPITAL COURSE: Intentional consumption of drug bags, non-suicidal - Patient remains hemodynamically stable - No significant electrolyte abnormalities, normal kidney function, normal liver function - s/p Activated charcoal - Poison control has been contacted - Patient denies any suicidal or homicidal ideation; reported her actions were i n an attempt to prevent legal action - Patient was placed on Lactulose q6h to induce bowel movement - she did have several bowel movements this afternoon and was cleared for discharge Polysubstance abuse (Methamphetamine, Heroin) - c/w Narcan PRN Hepatitis A & C - Will defer to outpatient provider for further evaluation and treatment Anxiety / Depression - Currently not on any medications Nicotine dependence - Patient has refused nicotine patches DVT prophylaxis - c/w Heparin DISCHARGE MEDICATIONS: Please see below. ALLERGIES: Please see below. PHYSICAL EXAMINATION ON DISCHARGE: Vitals (See below) General: Lying in bed, no acute distress, comfortable, AAOx3 HEENT: NC, AT CVS: +S1S2 Lungs: Fair air entry b/l, -w/r/r Abdomen: Soft, ND, NT Extremities: - Edema, - Calf tenderness LABORATORY DATA: Please see below. ACTIVITY: [As tolerated]. DISCHARGE PLAN: Follow-up with primary care provider within the next 7 days Remain compliant with treatment plan and medications Return to the ER if you experience any problems DISPOSITION: Discharge to legal system DISCHARGE CONDITION: [Stable]. TIME SPENT ON DISCHARGE: 35 minutes Vital Signs/I&Os Vital Signs Date Time Temp Pulse Resp B/P (MAP) Pulse Ox O2 Delivery O2 Flow Rate FiO2 04/25/19 18:00 99.0 72 19 114/65 (81) 99 04/25/19 14:38 Room Air I&O- Last 24 Hours up to 6 AM 04/26/19 06:00 Intake Total 1225 ml Output Total 1225 ml Balance 0 ml Microbiology Microbiology 04/24/19 Urine Culture - Final, Complete Discharge Medications Scheduled Gabapentin (Gabapentin) 400 Mg Capsule, 400 MG PO TID, (Reported) Prazosin HCl (Minipress) 2 Mg Capsule, 3 MG PO QHS, (Reported) Quetiapine Fumarate (Seroquel) 50 Mg Tablet, 50 MG PO QHS, (Reported) Allergies Coded Allergies: codeine (Verified Allergy, Severe, almost dies, 02/02/19) acetaminophen (Verified Allergy, Intermediate, rash, 02/02/19) hydrocodone (Verified Allergy, Intermediate, rash, 02/02/19) morphine (Verified Allergy, Intermediate, unknown, 02/02/19) trazodone (Verified Allergy, Intermediate, rash, 02/02/19) MADHAV BRODERICK MD Apr 26, 2019 11:19
== END 2019-04-25 19:55 | DRG 773 ==
LOC: M ED 21:20 → M ED INP 21:21 → M MSPAV 04-24 04:50 → OBSVTOIN 04-25 12:11
PROVIDERS: ADMIT Internal Medicine; ATTEND Internal Medicine
DX: F11.90 Opioid use, unspecified, uncomplicated (principal); B19.10 Unspecified viral hepatitis B without hepatic coma; F41.9 Anxiety disorder, unspecified; F32.9 Major depressive disorder, single episode, unspecified; F17.200 Nicotine dependence, unspecified, uncomplicated; B19.20 Unspecified viral hepatitis C without hepatic coma; Z79.899 Other long term (current) drug therapy; Z88.5 Allergy status to narcotic agent; Z88.8 Allergy status to other drugs, medicaments and biological substances

== ENCOUNTER → 2022-02-20 | Outpatient (CLI) | payer MEDICAID ==
[~2022-02-20] MED LIST changes: +GABA-283 PO; +IBUP1TAB5 PO; -IBUP40TA PO; +MINI2CAP PO; +SERO50TA PO
[2022-02-20 16:33] LABS: HEMATOCRIT 34.9 % (36.0-47.0); HEMOGLOBIN 11.9 g/dl (12.0-15.5); MEAN CORPUSCULAR HEMOGLOBIN 30.1 pg (27.0-33.0); MEAN CORPUSCULAR HGB CONC 34.1 g/dl (32.0-36.5); MEAN CORPUSCULAR VOLUME 88.4 fl (80.0-96.0); RED BLOOD COUNT 3.95 10^6/uL (4.00-5.40); WHITE BLOOD COUNT 5.8 10^3/uL (4.0-10.0)
[2022-02-20 18:05] LABS: ALT/SGPT 49 U/L (12-78); BILIRUBIN,TOTAL 0.3 MG/DL (0.2-1.0); BLOOD UREA NITROGEN 11 MG/DL (7-18); CALCIUM LEVEL 9.4 MG/DL (8.5-10.1); CARBON DIOXIDE LEVEL 29 MEQ/L (21-32); CHLORIDE LEVEL 104 MEQ/L (98-107); CREATININE FOR GFR 0.76 MG/DL (0.55-1.30); GLOMERULAR FILTRATION RATE > 60.0 (>60); GLUCOSE, FASTING 88 MG/DL (70-100); POTASSIUM SERUM 3.8 MEQ/L (3.5-5.1); SODIUM LEVEL 139 MEQ/L (136-145); TOTAL PROTEIN 8.4 GM/DL (6.4-8.2)
[2022-02-20 18:38] LABS: GC DNA AMPLIFICATION NEGATIVE (NEGATIVE)
[2022-02-20 20:05] LABS: HIV 1&2 SCREEN CENTAUR NEGATIVE (NEGATIVE)
[2022-02-20 20:06] LABS: HEPATITIS B SURFACE ANTIGEN NEGATIVE (NEGATIVE)
[2022-02-20 20:15] LABS: HEPATITIS C VIRUS ABY INDEX > 11.0 INDEX (<0.8)
[2022-02-20 20:31] LABS: HCG, SERUM QUALITATIVE NEGATIVE (NEGATIVE)
== END ==
LOC: M LAB 14:48
PROVIDERS: ATTEND Family Medicine
DX: F11.21 Opioid dependence, in remission (principal)

== ENCOUNTER → 2024-03-18 | Outpatient (REF) | payer OTHER ==
[~2024-03-18] MED LIST changes: -GABA-283 PO; +GABA-284 PO
== END ==
LOC: M PLALAB 08:46
PROVIDERS: ATTEND Nurse Practitioner Women's Health
DX: Z34.80 Encounter for supervision of other normal pregnancy, unspecified trimester (principal)

== ENCOUNTER 2024-03-30 17:25 | Emergency (ER) | payer OTHER, SELFPAY ==
[~2024-03-30] VITALS: Ht 175.3 cm; Wt 79.5 kg
[2024-03-30 17:38] VITALS: BP 157/85; TEMP 97.5; O2SAT 100
== END 2024-03-30 18:23 | disposition admitted as inpatient to this hospital (09) ==
LOC: M ED 17:25 → EDBD 17:25 → M ED 18:23
DX: Z53.21 Procedure and treatment not carried out due to patient leaving prior to being seen by health care provider (principal)

== ENCOUNTER 2024-03-30 18:10 | Inpatient (IN) | payer OTHER, SELFPAY ==
[2024-03-30] VITALS (10 sets, daily range): BP systolic 129–177; BP diastolic 61–88; O2SAT 96
[~2024-03-30] VITALS: Ht 175.3 cm; Wt 79.5 kg
[2024-03-30] MEDS: PENICILLIN G POTASSIUM 5 MU IV 5 MU in D5W MINI-BAG PLUS 100 ML IV STA (19:54)
[2024-03-30] MEDS ORDERED: LIDOCAINE 1% MDV 20ML VIAL INFIL PRN (19:55)
[2024-03-30] MEDS ORDERED: TRANEXAMIC ACID INJection 1,000 MG in NS 100 ML IV PRN (19:55)
[2024-03-30] MEDS ORDERED: OXYTOCIN DRIP 30 UNITS in IV 1 EA IV PRN (19:55)
[2024-03-30 20:23] LABS: CORD GAS ABE A -4.3; CORD GAS HCO3 A 19.6 MMOL/L; CORD GAS O2 SAT A 83.4 %; CORD GAS PCO2 A 32.6 mmHg; CORD GAS PH A 7.398 UNITS; CORD GAS PO2 A 34.7 mmHg; CORD GAS SBC A 20.7 MMOL/L; CORD GAS TCO2 A 20.7 MMOL/L
[2024-03-30] MEDS ORDERED: METHYLERGONOVINE MALEATE 0.2 MG TAB PO PRN (20:55)
[2024-03-30] MEDS ORDERED: DIBUCAINE 1% OINTMENT 30GM TOP PRN (20:55)
[2024-03-30] MEDS ORDERED: DOCUSATE SODIUM 100MG CAPSULE PO PRN (20:55)
[2024-03-30] MEDS ORDERED: MOM 30ML SUSPENSION UDC PO PRN (20:55)
[2024-03-30] MEDS ORDERED: CALCIUM CARBONATE 500 MG CHEW U/D PO PRN (20:55)
[2024-03-30] MEDS ORDERED: RHO(D) IMMUNE GLOBULIN/MALTOSE 500MCG(2500IU)/2.2ML VIAL (WINRHO) IM SCH (20:55)
[2024-03-30] MEDS ORDERED: METHYLERGONOVINE MALEATE 0.2MG/ML 1ML VIAL IM PRN (20:55)
[2024-03-30] MEDS ORDERED: ANUSOL HC CREAM 30GM TOP PRN (20:55)
[2024-03-30] MEDS ORDERED: OXYTOCIN INJ 10UNITS/ML 1ML VIAL ONE (21:00)
[2024-03-30] MEDS: LOPERAMIDE 2 MG CAPLET PO ONE (21:29)
[2024-03-30] MEDS: METHYLERGONOVINE MALEATE 0.2MG/ML 1ML VIAL IM PRN (21:29)
[2024-03-30] MEDS: CARBOPROST TROMETHAMINE 250 MCG/ML AMP IM PRN (21:30)
[2024-03-30] MEDS: IBUPROFEN 800 MG TAB PO PRN (21:30)
[2024-03-30 23:20] LABS: AMPHETAMINES URINE REFLEX NEGATIVE (NEGATIVE); BARBITURATES URINE REFLEX NEGATIVE (NEGATIVE); BENZODIAZEPINES URINE REFLEX NEGATIVE (NEGATIVE); CANNABINOIDS URINE REFLEX NEGATIVE (NEGATIVE); METHADONE URINE REFLEX NEGATIVE (NEGATIVE); PHENCYCLIDINE URINE REFLEX NEGATIVE (NEGATIVE)
[2024-03-30 23:51] LABS: COCAINE METABOLITE URINE REFLE PENDING CONFIRMATION (NEGATIVE); OPIATES URINE REFLEX PENDING CONFIRMATION (NEGATIVE)
[2024-03-30] MEDS ORDERED: PEN G POT 3,000,000 UNIT/50 ML 3,000,000 UNIT in IV 1 EA IV SCH (23:55)
[2024-03-31 00:52] LABS: HEMATOCRIT 27.7 % (36.0-47.0); HEMOGLOBIN 8.6 g/dl (12.0-15.5); MEAN CORPUSCULAR HEMOGLOBIN 23.6 pg (27.0-33.0); MEAN CORPUSCULAR VOLUME 75.9 fl (80.0-96.0); PLATELET COUNT, AUTOMATED 149 10^3/uL (150-450); RED BLOOD COUNT 3.65 10^6/uL (4.00-5.40); WHITE BLOOD COUNT 9.8 10^3/uL (4.0-10.0)
[2024-03-31 01:43] LABS: HIV 1&2 SCREEN NEGATIVE (NEGATIVE)
[2024-03-31 02:01] LABS: HEPATITIS C VIRUS ABY INDEX > 11.00 INDEX (<0.8)
[2024-03-31 05:33] VITALS: BP 138/70; O2SAT 98
[2024-03-31] MEDS: PRENATAL VITAMINS CHEWABLE TABLET PO SCH (10:10)
[2024-03-31] MEDS: cloNIDine 0.2 MG TAB PO SCH (10:11)
[2024-03-31] MEDS: MEASLES,MUMPS,RUBELLA VACCINE INJ (MMR-II) SC.IMMUN ONE (17:55)
[2024-03-31 18:00] VITALS: BP 115/59; O2SAT 100
[2024-04-01 03:25] VITALS: BP 128/58; O2SAT 98
[2024-04-01 06:12] VITALS: BP 123/67; O2SAT 97
[2024-04-01 08:57] VITALS: BP 117/67
[2024-04-05 07:07] LABS: BENZOYLECGONINE, CONF, MS,UR >3000 ng/mL (Cutoff=150); Cocaine Positive (.); Codeine Negative (Cutoff=200); GC Morphine 945 ng/mL (Cutoff=200); Morphine Positive (.); Opiates Positive (.)
== END 2024-04-01 09:45 | DRG 560 ==
LOC: M LDI 18:10 → M OBS 03-31
PROVIDERS: ADMIT Obstetrics & Gynecology; ATTEND Obstetrics & Gynecology
PROC: 10E0XZZ Delivery of Products of Conception, External Approach (ICD-10-PCS; principal; 2024-03-30)
DX: O60.14X0 Preterm labor third trimester with preterm delivery third trimester, not applicable or unspecified (principal); O99.324 Drug use complicating childbirth; Z37.0 Single live birth; Z3A.34 34 weeks gestation of pregnancy; F14.10 Cocaine abuse, uncomplicated; F17.200 Nicotine dependence, unspecified, uncomplicated; O99.334 Smoking (tobacco) complicating childbirth; O09.31 Supervision of pregnancy with insufficient antenatal care, first trimester; O09.32 Supervision of pregnancy with insufficient antenatal care, second trimester; O09.33 Supervision of pregnancy with insufficient antenatal care, third trimester; Z88.5 Allergy status to narcotic agent; Z88.8 Allergy status to other drugs, medicaments and biological substances; Z79.899 Other long term (current) drug therapy